=== PATIENT | female | born 1930 | race Caucasian/White ===

== ENCOUNTER 2016-07-24 16:34 | Emergency (ER) | payer MEDICARE, OTHER ==
[~2016-07-24] VITALS: Ht 152.4 cm; Wt 49.4 kg
[2016-07-24 16:34] VITALS: BP 177/109
[~2016-07-24 16:34] MED LIST changes: -MECL12.52 PO
[2016-07-24] MEDS ORDERED: IPRATRPIUM/ALBUTEROL 0.5/2.5MG 3 ML NEBU. NEB ONE (17:15)
--- NOTE | 2016-07-24 17:22 | EKG ---
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
--- NOTE | 2016-07-24 17:24 | ED.ADGEN ---
Past History Past Medical History: COPD, Diabetes, Hypertension Past Surgical History: Other Alcohol Use: Occasionally Drug Use: None Adult General Chief Complaint Chief Complaint dizziness HPI HPI Patient is a 86 year old female who presents with intermittent dizziness, most prominently when she stands up or stands from a laying position. It's been occurring for 2 weeks. It resolves after she stands still for a moment and then does not reoccur. Patient's noted that she had elevated blood pressure yesterday and today. She would see her primary care doctor who directed her to the ER. Patient states that 2 weeks ago her doctor decrease her Lopressor from 2 pills a day to one pill a day due to the dizziness. She also states a mild increase shortness of breath, she's had mild sinus congestion and cough. She does have COPD, uses breathing treatments intermittently. She has had these 1 yesterday and today. She denies any known fevers Review of Systems Review of Systems Constitutional: Denies fever or chills [] Eyes: Denies change in visual acuity, redness, or eye pain [] HENT: Per history of present illness Respiratory: Per history of present illness Cardiovascular: Denies chest pain GI: Denies abdominal pain, nausea, vomiting, bloody stools or diarrhea [] : Denies dysuria or hematuria [] Musculoskeletal: Denies back pain or joint pain [] Integument: Denies rash or skin lesions [] Neurologic: Denies headache, focal weakness or sensory changes [] Current Medications Current Medications Current Medications Medications (Trade) Dose Ordered Sig/Nanette Start Time Stop Time Status Last Admin Dose Admin Albuterol/ Ipratropium 3 ml 3 ml 1X ONCE 07/24/16 17:15 07/24/16 17:17 DC 07/24/16 17:17 3 ML Meclizine HCl (Antivert) 25 mg 1X ONCE 07/24/16 17:45 07/24/16 17:50 DC Sodium Chloride (Iv Sodium Chloride 0.9% 500ml) 500 ml @ 0 mls/hr 1X ONCE 07/24/16 17:45 07/24/16 17:50 DC Allergies Allergies Allergies Coded Allergies Type Severity Reaction Last Updated Verified aspirin Allergy Severe SWELLING 08/06/13 Yes Penicillins Allergy Mild RESH 08/06/13 No amoxicillin Allergy Unknown 08/06/13 No clarithromycin Allergy Unknown 08/06/13 No Physical Exam Physical Exam Constitutional: Well developed, well nourished, no acute distress, non-toxic appearance. Talks in complete in full sentences, shows no signs of respiratory distress HENT: Normocephalic, atraumatic, bilateral external ears normal, oropharynx moist, no oral exudates, nose normal. Fluid behind the ears with normal light reflex Eyes: PERRLA, EOMI, conjunctiva normal, no discharge. [] Neck: Normal range of motion, no tenderness, supple, no stridor. [] Cardiovascular:Heart rate regular rhythm, no murmur [] Lungs & Thorax: Bilateral breath sounds clear to auscultation, moderate air movement, no appreciable crackles or wheeze Abdomen: Bowel sounds normal, soft, no tenderness, no masses, no pulsatile masses. [] Skin: Warm, dry, no erythema, no rash. [] Back: No tenderness, no CVA tenderness. [] Extremities: No tenderness, no cyanosis, no clubbing, ROM intact, no edema. [] Neurologic: Alert and oriented X 3, normal motor function, normal sensory function, no focal deficits noted. Cranial nerves II through XII intact, 5 over 5 bilateral handgrip, no ataxia Psychologic: Affect normal, judgement normal, mood normal. [] Current Patient Data Vital Signs Vital Signs Date Time Temp Pulse Resp B/P Pulse Ox O2 Delivery O2 Flow Rate FiO2 07/24/16 17:17 95 Room Air 07/24/16 16:34 98.3 103 18 Lab Results Laboratory Tests Test 07/24/16 17:10 07/24/16 17:29 White Blood Count 4.8x10^3/uL (4.0-11.0) Red Blood Count 5.15x10^6/uL (3.50-5.40) Hemoglobin 14.9g/dL (12.0-15.5) Hematocrit 45.7% (36.0-47.0) Mean Corpuscular Volume 89fL (79-100) Mean Corpuscular Hemoglobin 29pg (25-35) Mean Corpuscular Hemoglobin Concent 33g/dL (31-37) Red Cell Distribution Width 14.8% (11.5-14.5) H Platelet Count 253x10^3/uL (140-400) Neutrophils (%) (Auto) 55% (31-73) Lymphocytes (%) (Auto) 30% (24-48) Monocytes (%) (Auto) 11% (0-9) H Eosinophils (%) (Auto) 3% (0-3) Basophils (%) (Auto) 1% (0-3) Neutrophils # (Auto) 2.6x10^3uL (1.8-7.7) Lymphocytes # (Auto) 1.4x10^3/uL (1.0-4.8) Monocytes # (Auto) 0.5x10^3/uL (0.0-1.1) Eosinophils # (Auto) 0.1x10^3/uL (0.0-0.7) Basophils # (Auto) 0.1x10^3/uL (0.0-0.2) POC Hemoglobin 15.6gm/dL POC Hematocrit 46% POC Sodium 139mmol/L (135-145) POC Potassium 4.2mmol/L (3.5-5.0) POC Chloride 99mmol/L (98-110) POC Total CO2 27mmol/L (23-32) Anion Gap 18mmol/L (6-14) H POC Blood Urea Nitrogen 5mg/dL (8-26) L POC Creatinine 0.6mg/dL (0.5-1.4) Glucose Level 130mg/dL (60-99) H POC Ionized Calcium (Rosalba) 1.20mmol/L (1.13-1.32) EKG EKG 95 bpm, sinus, leftward axis, normal intervals, no ST elevation or depression, nonischemic T waves, interpreted by me [] Radiology/Procedures Radiology/Procedures Two-view chest x-ray shows no acute cardiac process, pulmonary or bony process. Patient has a skin fold from her prior mastectomy but no pneumothorax appreciated, interpreted by me [] Course & Med Decision Making Course & Med Decision Making Pertinent Labs and Imaging studies reviewed. (See chart for details) Chest x-ray negative for pneumonia, pulmonary edema or cardiomegaly. Patient shows no signs of respiratory distress. She was given a DuoNeb breathing treatment here in the ED. She walks with normal gait, states that she feels much better. Checked an i-STAT chemistry did not show any renal failure or other significant abnormality. CBC within normal limits. EKG shows no ischemic changes. Orthostatics performed and patient's blood pressure did drop greater than 15 points but she did not become hypotensive. I explained this to the patient and her need to stand up slowly and to wait before she starts walking. Her blood pressure is elevated and I suggested that she increase her lisinopril to 2 tablets per day to the equivalent of 20 mg per day. She will continue to take her Lopressor-HCTZ at the same amount. She has a follow-up appointment with Dr. Alex on August 05, I encouraged her to keep this appointment and return sooner if she develops any new concerning symptoms. She is to continue to use her albuterol nebulizer as needed. Final Impression Final Impression Hypertension Dizziness COPD Upper respiratory infection [] Problems: Dragon Disclaimer Dragon Disclaimer This electronic medical record was generated, in whole or in part, using a voice recognition dictation system. MARGARETH ULLOA MD Jul 24, 2016 17:24
[2016-07-24 17:33] LABS: HEMOGLOBIN ISTAT 15.6 gm/dL; POTASSIUM ISTAT 4.2 mmol/L (3.5-5.0)
[2016-07-24 17:38] LABS: BASO # 0.1 x10^3/uL (0.0-0.2); BASO % 1 % (0-3); EOS # 0.1 x10^3/uL (0.0-0.7); EOS % 3 % (0-3); HEMATOCRIT 45.7 % (36.0-47.0); HEMOGLOBIN 14.9 g/dL (12.0-15.5); LYMPH # 1.4 x10^3/uL (1.0-4.8); LYMPH % 30 % (24-48); MEAN CORPUSCULAR HEMOGLOBIN 29 pg (25-35); MEAN CORPUSCULAR HGB CONC 33 g/dL (31-37); MEAN CORPUSCULAR VOLUME 89 fL (79-100); MONO # 0.5 x10^3/uL (0.0-1.1); MONO % 11 % (0-9); NEUT # 2.6 x10^3uL (1.8-7.7); NEUT % 55 % (31-73); PLATELET COUNT 253 x10^3/uL (140-400); RED BLOOD COUNT 5.15 x10^6/uL (3.50-5.40); RED CELL DISTRIBUTION WIDTH 14.8 % (11.5-14.5); WHITE BLOOD COUNT 4.8 x10^3/uL (4.0-11.0)
[2016-07-24] MEDS ORDERED: MECLIZINE 25 MG TABLET PO ONE (17:45)
[2016-07-24] MEDS ORDERED: IV NORMAL SALINE 500ML 500 ML IV ONE (17:45)
[2016-07-24] MEDS ORDERED: MECL12.52 PO (18:00)
--- NOTE | 2016-07-25 08:09 | RAD ---
Indication cough and congestion. PA and lateral views of the chest were obtained. Comparison is made to a single view examination 02/21/2013. There are background changes compatible with emphysema. The heart and pulmonary vessels are within normal limits. There is no consolidated pneumonia seen. There is marked compression of 2 midthoracic vertebral body segments similar to a study May 26, 2012. IMPRESSION: No acute finding apparent in the chest
== END 2016-07-24 18:10 | disposition home or self-care (01) ==
LOC: ER 16:34
DX: I10 Essential (primary) hypertension (principal); J06.9 Acute upper respiratory infection, unspecified; R42 Dizziness and giddiness; J44.9 Chronic obstructive pulmonary disease, unspecified; E11.9 Type 2 diabetes mellitus without complications; Z88.0 Allergy status to penicillin; Z88.1 Allergy status to other antibiotic agents; Z88.6 Allergy status to analgesic agent
CPT/HCPCS: 36415; 71020; 80047; 85027; 93005; 94640; 99285; J7620

== ENCOUNTER → 2016-07-24 | Outpatient (CLI) | payer MEDICARE, OTHER ==
[~2016-07-24] MED LIST: ALBU1.25 IH; EPIN5DRO OP; EZET1TAB19 PO; FLUT16SP2 NS; FLUT1DIS IH; IPRA12.9 IH; LEVO50TA PO; LISI-377 PO; LORA10TA55 PO; MECL12.52 PO; METO1TAB11 PO; MONT10TA6 PO
--- NOTE | 2016-07-24 10:32 | RAD ---
Bone densitometry scan, 07/24/2016: History: Ovarian failure, screening, breast cancer with chemotherapy The lumbar spine and right hip were examined utilizing DEXA technique. The bone mineral density in the lumbar spine as measured from the L1-L4 levels is 1.07 g/sq cm. This yields a T score of -0.9 which is in the normal range. The total T score at the right hip is -3.0 compatible with osteoporosis. IMPRESSION: 1. Osteoporosis of the right hip. 2. The lumbar spine bone mineral density is in the normal range. It may be elevated into the normal range by hypertrophic degenerative change. It is likely that the hip measurements more accurately reflect the patient's overall bone mineral density status.
== END | disposition home or self-care (01) ==
LOC: DXRAD 09:18
PROVIDERS: ATTEND Specialist
DX: Z13.820 Encounter for screening for osteoporosis (principal)
CPT/HCPCS: 77080

== ENCOUNTER 2017-04-07 11:44 | Inpatient (IN) | payer MEDICARE, OTHER ==
[~2017-04-07] VITALS: Ht 152.4 cm; Wt 46.4 kg
[~2017-04-07 11:44] MED LIST changes: -EZET1TAB19 PO; +EZET1TAB41 PO; +MECL12.52 PO
[2017-04-07 12:09] VITALS: BP 148/71
[2017-04-07] MEDS ORDERED: ONDANSETRON PF 4 MG/2 ML VIAL. IV PRN (13:00)
[2017-04-07 13:03] LABS: BASO # 0.1 x10^3/uL (0.0-0.2); BASO % 1 % (0-3); EOS # 0.1 x10^3/uL (0.0-0.7); EOS % 1 % (0-3); HEMATOCRIT 40.5 % (36.0-47.0); HEMOGLOBIN 14.1 g/dL (12.0-15.5); LYMPH # 0.8 x10^3/uL (1.0-4.8); LYMPH % 11 % (24-48); MEAN CORPUSCULAR HEMOGLOBIN 30 pg (25-35); MEAN CORPUSCULAR HGB CONC 35 g/dL (31-37); MEAN CORPUSCULAR VOLUME 85 fL (79-100); MONO # 1.4 x10^3/uL (0.0-1.1); MONO % 18 % (0-9); NEUT # 5.2 x10^3uL (1.8-7.7); NEUT % 69 % (31-73); PLATELET COUNT 308 x10^3/uL (140-400); RED BLOOD COUNT 4.75 x10^6/uL (3.50-5.40); RED CELL DISTRIBUTION WIDTH 15.1 % (11.5-14.5); WHITE BLOOD COUNT 7.5 x10^3/uL (4.0-11.0)
[2017-04-07 13:12] LABS: ALBUMIN 2.4 g/dL (3.4-5.0); ALBUMIN/GLOBULIN RATIO 0.7 (1.0-1.7); CALCIUM 8.5 mg/dL (8.5-10.1); CREATININE 0.9 mg/dL (0.6-1.0); GFR 59.7; MAGNESIUM 1.9 mg/dL (1.8-2.4); TOTAL BILIRUBIN 0.4 mg/dL (0.2-1.0); TOTAL PROTEIN 5.9 g/dL (6.4-8.2)
[2017-04-07 13:16] LABS: POTASSIUM 2.7 mmol/L (3.5-5.1)
[2017-04-07] MEDS: POTASSIUM CL 40MEQ IN 0.9%NACL 1,000 ML IV SCH (14:01)
[2017-04-07 14:23] LABS: % BANDS 4 % (0-9); % EOS 1 % (0-5); % LYMPHS 11 % (24-48); % MONOS 9 % (0-10); % SEGS 74 % (35-66)
[2017-04-07 14:24] LABS: PLT ESTIMATE ADEQUATE (ADEQUATE)
[2017-04-07 14:25] LABS: % ATYL 1 % (0-0)
[2017-04-07 15:47] VITALS: BP 158/76
--- NOTE | 2017-04-07 15:48 | HP ---
ADMIT DATE: 04/07/2017 HISTORY OF PRESENT ILLNESS: The patient is an 86-year-old female patient who was admitted directly from Dr. Tan's office as she apparently was complaining of upper respiratory tract symptoms, was seen in the office last Friday, was given doxycycline as well as Mucinex and apparently over this weekend, she started having episodes of confusion, hallucination, and delusion. She has still cats in her house, while there are none there and she thought her son was taken to jail. She continued to have also cough with phlegm, have an episode of fever and chest tightness and hoarseness of voice as well as runny nose, was admitted directly for further evaluation and treatment. PAST MEDICAL HISTORY: Significant for type 2 diabetes mellitus, hypertension, hyperlipidemia, hypothyroidism, COPD, glaucoma. PAST SURGICAL HISTORY: Significant for right lumpectomy and radical axillary lymphadenectomy. She also was treated with chemotherapy and radiation therapy in the year 1999. She has right-sided cataract extraction, tubal ligation, and she has also left olecranon bursitis with axillary lymphadenopathy treated with antibiotic. ALLERGIES: She has extensive list of allergies including IBUPROFEN, ASPIRIN, PENICILLIN, BIAXIN, AMOXICILLIN, dust mites, mold, grass, weed, ERYTHROMYCIN, AZITHROMYCIN. MEDICATIONS: She is currently on the following medications at home: Doxycycline 100 mg twice a day, Benefiber as needed, Mucinex 600 mg twice a day, Synthroid 50 mcg once a day, Singulair 10 mg once a day, loratadine 10 mg once a day. She is on Advair Diskus, Atrovent inhaler, albuterol inhaler, Flonase 1 spray to each nostril twice a day, multivitamin 1 tablet once a day, Zestril 5 mg once a day, Crestor 20 mg at bedtime, vitamin D3 1000 international units once a day, Lopressor 25 mg twice a day, ____ eye solution. FAMILY HISTORY: She has 3 brothers, all young in their early 50s because of myocardial infarction. Her father at the age of 54 because of myocardial infarction. Mother at the age of 98 because of myocardial infarction. SOCIAL HISTORY: She is , lives alone. She has 2 daughters and one son. She quit smoking about 2 weeks ago. She drinks a glass of wine or beer, the last time she drank was last . She does not use any drugs. 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 REVIEW OF SYSTEMS: The patient denied any blurring of vision. She has right-sided cataract extraction and she has also early glaucoma, but denied any macular degeneration. She has bilateral hearing aids. Did complain of stuffy nose. Denied any nosebleeds or postnasal drip. Denied any sore throat, sore tongue, toothache, hoarseness of voice or difficulty swallowing. Denied any nausea, vomiting, diarrhea or constipation. Denied any hematemesis, melena or hematochezia. Denied any dysuria or frequency. Did complain of difficulty urinating. Did complain of chest tightness, cough with phlegm. Denied any dizziness, lightheadedness, or vertigo. PHYSICAL EXAMINATION: GENERAL: When I examined her, she was pale, but no jaundice, cyanosis, or thyromegaly. No jugular venous distention. No limb edema. VITAL SIGNS: Her heart rate was 91, blood pressure was 148/71, temperature was 97, respiratory rate was 24, and oxygen saturation was 95% on room air. HEAD, EYES, EARS, NOSE AND THROAT: Showed normocephalic, atraumatic. NECK: Supple. HEART: Showed normal first and second heart sounds with no gallop, rub or murmur. CHEST: Showed central trachea, equally reduced expansion, reduced air entry, vesicular breath sounds. I could not really appreciate any rhonchi. ABDOMEN: Distended, soft and nontender. No guarding or rigidity. No organomegaly. Hernial orifice intact. Bowel sounds normal. NEUROLOGIC: She is awake, alert, responding appropriately. Cranial nerves intact. EXTREMITIES: She moves extremities without difficulty. She apparently ambulates without assistance or assistive devices. LABORATORY DATA: On arrival to the hospital, she had lab work done, which showed a white cell count of 7500, hemoglobin 14, hematocrit 40, MCV 85 and platelet count of 308,000 with a manual differential showed 69% neutrophils, 11% lymphocytes and 18% monocytes. Her serum sodium was 133, potassium 2.7, chloride 93, bicarbonate 31, anion gap of 9, BUN 10, creatinine 0.9, estimated GFR was 59 mL per minute. Her glucose 139, calcium was 8.5, magnesium was 1.9. Total bilirubin, AST, ALT, alkaline phosphatase were normal. Total protein was 5.9, albumin 2.4. SUMMARY: This is an 86-year-old female patient who was admitted with new onset of confusion, hallucination and delusions. She also had symptoms of upper respiratory tract infection. Initial evaluation showed hyponatremia and hypokalemia. She is not currently on any medications that should cause this hypokalemia. PLAN: My plan is to arrange for her to have chest x-ray, CT scan of the head and paranasal sinuses. Start her on IV fluid, continue with doxycycline and Mucinex with all other medication. We will repeat all her lab works tomorrow. LILLIAN ROCA MD DR: LUISANA/robson JOB#: [id number] / [id number]
--- NOTE | 2017-04-07 15:53 | RAD ---
CT of the head without contrast, 04/07/2017: History: Hallucinations, sinus congestion There is mild cerebral atrophy. The ventricles are within normal limits in size. There is no shift of the midline structures. There is no evidence of acute intracranial hemorrhage or mass effect. IMPRESSION: 1. Cerebral atrophy. 2. No acute intracranial abnormality is detected. CT of the paranasal sinuses without contrast, 04/07/2017: Noncontrast scans were obtained with multiplanar reconstructions produced. There is moderate mucosal thickening in both ethmoid sinuses and to a lesser degree in the frontal sinuses. There is mild mucosal thickening in both maxillary sinuses. An air-fluid level is present in the left maxillary sinus compatible with acute sinusitis. The sphenoid sinuses are clear. There is deviation of the nasal septum to the left of midline. The orbital contents are unremarkable. IMPRESSION: Moderate bilateral paranasal sinusitis with an air-fluid level present in the left maxillary sinus. PQRS Compliance Statement: One or more of the following individualized dose reduction techniques were utilized for this examination: 1. Automated exposure control 2. Adjustment of the mA and/or kV according to patient size 3. Use of iterative reconstruction technique
[2017-04-07] MEDS ORDERED: GUAI600T47 PO (15:54)
[2017-04-07] MEDS ORDERED: MULT1TAB52 PO (15:54)
[2017-04-07] MEDS ORDERED: OLOP2.5D EACHEYE (15:54)
[2017-04-07] MEDS ORDERED: CHOL10003 PO (15:54)
[2017-04-07] MEDS ORDERED: LUTE1CAP3 PO (15:54)
[2017-04-07] MEDS ORDERED: DOXY100T PO (15:54)
[2017-04-07] MEDS ORDERED: CRESTOR20 MG PO (15:54)
[2017-04-07] MEDS ORDERED: WHEA1POW8 PO (15:54)
--- NOTE | 2017-04-07 15:57 | RAD ---
Chest, 2 views, 04/07/2017: History: COPD with cough and shortness of breath Comparison is made to a study from 07/24/2016. There is flattening of the hemidiaphragms compatible with hyperexpansion due to COPD. The heart size is normal. There are granulomatous calcifications in the right chest. Streaky opacities are present in the right middle lobe and lingula. These have worsened since 07/24/2016. No pleural fluid is evident. Two severe mid thoracic vertebral compression fractures are unchanged. IMPRESSION: 1. Emphysema with parenchymal scarring. 2. Mild streaky atelectasis and/or pneumonitis in the right middle lobe and lingula.
[2017-04-07] MEDS ORDERED: ALBUTEROL SULFATE 2.5 MG/3 ML NEBU. NEB PRN (16:15)
[2017-04-07] MEDS ORDERED: MECLIZINE 12.5 MG TABLET. PO PRN (16:15)
[2017-04-07] MEDS: ALBUTEROL SULFATE 2.5 MG/3 ML NEBU. NEB SCH ×2 (17:35→21:06)
[2017-04-07 17:38] LABS: CALCIUM 8.6 mg/dL (8.5-10.1); CREATININE 0.8 mg/dL (0.6-1.0); GFR 68.3
[2017-04-07 17:41] LABS: POTASSIUM 2.7 mmol/L (3.5-5.1)
[2017-04-07] MEDS ORDERED: METO25TA4 PO (17:55)
[2017-04-07] MEDS: POTASSIUM CHLORIDE 20 MEQ TABLET.ER. PO SCH ×3 (18:00→20:39)
[2017-04-07 19:06] VITALS: BP 127/80
[2017-04-07] MEDS: ATORVASTATIN CALCIUM 20 MG TABLET PO SCH (20:40)
[2017-04-07] MEDS: DOXYCYCLINE HYCLATE 100 MG TABLET PO SCH (20:40)
[2017-04-07] MEDS: FLUTICASONE 50MCG/NASAL SPRAY 16GM BOTTLE. NS SCH (20:43)
[2017-04-07] MEDS ORDERED: MONTELUKAST 10 MG TABLET. PO SCH (21:00)
[2017-04-07] MEDS: BUDESONIDE 0.5 MG/2 ML NEBU NEB SCH (21:06)
[2017-04-07] MEDS: LISINOPRIL 10 MG TABLET PO SCH (21:24)
[2017-04-07] MEDS: METOPROLOL TART IMMED RELEASE 25 MG TABLET PO SCH (21:25)
[2017-04-07 22:01] LABS: BACTERIA,URINE 0 /HPF (0-FEW); BILIRUBIN,URINE NEG (NEG); CLARITY,URINE CLEAR; COLOR,URINE YELLOW; GLUCOSE,URINE NEG (NEG); NITRITE,URINE NEG (NEG); SQUAMOUS EPITHELIAL CELL,UR FEW /LPF; UROBILINOGEN,URINE 0.2 mg/dL (0.2 mg/dL)
[2017-04-07 23:12] VITALS: BP 154/75
[2017-04-08] MEDS: POTASSIUM CL 40MEQ IN 0.9%NACL 1,000 ML IV SCH (03:41)
[2017-04-08] MEDS: ALBUTEROL SULFATE 2.5 MG/3 ML NEBU. NEB SCH ×4 (05:28→21:28)
[2017-04-08 05:47] VITALS: BP 149/83
[2017-04-08 06:10] LABS: HEMATOCRIT 41.4 % (36.0-47.0); HEMOGLOBIN 14.1 g/dL (12.0-15.5); RED BLOOD COUNT 4.77 x10^6/uL (3.50-5.40); RED CELL DISTRIBUTION WIDTH 15.4 % (11.5-14.5); WHITE BLOOD COUNT 4.7 x10^3/uL (4.0-11.0)
[2017-04-08 06:18] LABS: ALBUMIN 2.2 g/dL (3.4-5.0); ALBUMIN/GLOBULIN RATIO 0.5 (1.0-1.7); CALCIUM 8.8 mg/dL (8.5-10.1); CREATININE 0.7 mg/dL (0.6-1.0); GFR 79.7; POTASSIUM 4.2 mmol/L (3.5-5.1); TOTAL BILIRUBIN 0.3 mg/dL (0.2-1.0); TOTAL PROTEIN 6.5 g/dL (6.4-8.2)
[2017-04-08] MEDS: CETIRIZINE HCL 10 MG TABLET PO SCH (08:30)
[2017-04-08] MEDS: MONTELUKAST 10 MG TABLET. PO SCH (08:30)
[2017-04-08] MEDS: DOXYCYCLINE HYCLATE 100 MG TABLET PO SCH ×2 (08:30→20:04)
[2017-04-08] MEDS: FLUTICASONE 50MCG/NASAL SPRAY 16GM BOTTLE. NS SCH ×2 (08:30→20:04)
[2017-04-08] MEDS: CHOLECALCIFEROL (VITAMIN D3) 1,000 UNIT TABLET PO SCH (08:30)
[2017-04-08] MEDS: MULTIVITAMIN with MINERAL TABLET. PO SCH (08:30)
[2017-04-08] MEDS: KETOTIFEN FUMARATE 0.025% OPHT SOLUTION BOTTLE. OU SCH (08:31)
[2017-04-08] MEDS ORDERED: LISINOPRIL 10 MG TABLET PO SCH (09:00)
[2017-04-08] MEDS ORDERED: LEVOTHYROXINE 50 MCG TABLET PO SCH (09:00)
[2017-04-08] MEDS ORDERED: METOPROLOL TART IMMED RELEASE 25 MG TABLET PO SCH (09:00)
[2017-04-08] MEDS: BUDESONIDE 0.5 MG/2 ML NEBU NEB SCH ×2 (10:49→21:28)
[2017-04-08 11:44] VITALS: BP 172/85
[2017-04-08 14:25] VITALS: BP 151/79
[2017-04-08 19:17] VITALS: BP 144/73
[2017-04-08] MEDS: ATORVASTATIN CALCIUM 20 MG TABLET PO SCH (20:04)
[2017-04-08] MEDS: LISINOPRIL 10 MG TABLET PO SCH (20:06)
[2017-04-08] MEDS: METOPROLOL TART IMMED RELEASE 25 MG TABLET PO SCH (20:06)
[2017-04-08 22:57] VITALS: BP 121/68
[2017-04-09 05:28] VITALS: BP 160/82
[2017-04-09] MEDS: ALBUTEROL SULFATE 2.5 MG/3 ML NEBU. NEB SCH ×2 (05:43→11:13)
[2017-04-09] MEDS ORDERED: LEVOTHYROXINE 50 MCG TABLET PO SCH (06:00)
[2017-04-09 06:30] LABS: BASO # 0.1 x10^3/uL (0.0-0.2); BASO % 1 % (0-3); EOS # 0.2 x10^3/uL (0.0-0.7); EOS % 4 % (0-3); HEMOGLOBIN 14.4 g/dL (12.0-15.5); LYMPH # 1.1 x10^3/uL (1.0-4.8); LYMPH % 25 % (24-48); MEAN CORPUSCULAR HEMOGLOBIN 30 pg (25-35); MEAN CORPUSCULAR HGB CONC 34 g/dL (31-37); MEAN CORPUSCULAR VOLUME 86 fL (79-100); MONO # 0.5 x10^3/uL (0.0-1.1); MONO % 12 % (0-9); NEUT # 2.6 x10^3uL (1.8-7.7); NEUT % 58 % (31-73); PLATELET COUNT 333 x10^3/uL (140-400); RED BLOOD COUNT 4.86 x10^6/uL (3.50-5.40); RED CELL DISTRIBUTION WIDTH 15.4 % (11.5-14.5); WHITE BLOOD COUNT 4.6 x10^3/uL (4.0-11.0)
[2017-04-09 06:41] LABS: ALBUMIN 2.2 g/dL (3.4-5.0); ALBUMIN/GLOBULIN RATIO 0.5 (1.0-1.7); CALCIUM 8.9 mg/dL (8.5-10.1); CREATININE 0.7 mg/dL (0.6-1.0); GFR 79.7; POTASSIUM 3.9 mmol/L (3.5-5.1); TOTAL BILIRUBIN 0.3 mg/dL (0.2-1.0); TOTAL PROTEIN 6.4 g/dL (6.4-8.2)
[2017-04-09] MEDS: BUDESONIDE 0.5 MG/2 ML NEBU NEB SCH (08:00)
[2017-04-09] MEDS: CETIRIZINE HCL 10 MG TABLET PO SCH (08:01)
[2017-04-09] MEDS: DOXYCYCLINE HYCLATE 100 MG TABLET PO SCH (08:02)
[2017-04-09] MEDS: MONTELUKAST 10 MG TABLET. PO SCH (08:02)
[2017-04-09] MEDS: CHOLECALCIFEROL (VITAMIN D3) 1,000 UNIT TABLET PO SCH (08:02)
[2017-04-09] MEDS: MULTIVITAMIN with MINERAL TABLET. PO SCH (08:02)
[2017-04-09] MEDS: KETOTIFEN FUMARATE 0.025% OPHT SOLUTION BOTTLE. OU SCH (08:03)
[2017-04-09] MEDS: FLUTICASONE 50MCG/NASAL SPRAY 16GM BOTTLE. NS SCH (08:03)
--- NOTE | 2017-04-09 08:11 | PN ---
DATE: 04/08/2017 SUBJECTIVE: The patient is resting slightly propped up in bed in no apparent distress. She is more awake, alert, responding appropriately. She has had no further episodes of hallucinations or delusions. Her lab work showed that her sodium and potassium have normalized. Her CT scan of the head and facial bones showed that she has moderate mucosal thickening of both ethmoid sinuses and to a lesser degree frontal sinuses. She has also mild thickening of both maxillary sinus and the air fluid level is present in the left maxillary sinus compatible with acute sinusitis. The CT scan of the head showed cerebral atrophy. No acute intracranial abnormalities detected and her chest x-ray showed that she has mild streaky atelectasis and/or pneumonitis in the right middle lobe and lingula. She is now on Levaquin as well as doxycycline. PHYSICAL EXAMINATION: GENERAL: When I examined her this afternoon, she looked well and was clearly in no apparent respiratory distress, pale but no jaundice, cyanosis, or thyromegaly. No jugular venous distention. No limb edema. VITAL SIGNS: Her heart rate was 84, blood pressure was 154/75, temperature was 97.4, respiratory rate 20, and oxygen saturation was 95% on 2 liters of oxygen by nasal cannula. HEAD, EYES, EARS, NOSE AND THROAT: Showed normocephalic, atraumatic. NECK: Supple. HEART: Showed normal first and second heart sounds. No gallop, rub, or murmur. CHEST: Clear to auscultation. No crepitation or rhonchi. ABDOMEN: Distended, soft, nontender. No guarding or rigidity. No organomegaly. All hernial orifices intact. Bowel sounds normal. NEUROLOGIC: She is awake, alert, responding appropriately. Cranial nerves intact. She moves extremities without difficulty. She ambulates without assistance or assistive devices. Her intake was 2600, output was 2200. LABORATORY DATA: Her lab work this morning showed a white cell count of 4700, hemoglobin 14, hematocrit 41, MCV 87, her platelet count of 303,000. Her sedimentation rate was 72 mm per hour. Chemistry this morning showed serum sodium was 136, potassium 4.2, chloride 100, bicarbonate 30, anion gap of 6, BUN 6, creatinine 0.7, estimated GFR was 80 mL per minute. Her glucose 129, calcium was 8.8. Total bilirubin, AST, ALT, alkaline phosphatase were normal. Total protein was 6.5, albumin 2.2. C-reactive protein was 54 mg/dL. Her blood cultures are negative so far. ASSESSMENT: 1. Acute left maxillary sinusitis. 2. Community-acquired pneumonia with infiltrate involving right middle lobe and lingula. 3. Hypokalemia, resolved. 4. Hyponatremia, resolved. 5. The patient was admitted with new onset of confusion, hallucination, and delusion. PLAN: My plan is to continue with levofloxacin as well as doxycycline. Her lab works have normalized. I will discontinue the IV fluid. We will consult Dr. Ruiz to evaluate for new onset hallucination. Repeat her lab works and if she remains stable, she can be discharged home to continue treatment as an outpatient. LILLIAN ROCA MD DR: LUISANA/robson JOB#: [id number] / [id number]
[2017-04-09 10:19] VITALS: BP 133/78
[2017-04-09] MEDS ORDERED: LEVO500T59 PO (13:35)
--- NOTE | 2017-04-09 16:26 | PDOC ---
Exam Note: Allen Note: Please also refer to the separate dictated note~for this date of service dictated separately.~Patient seen individually. Discussed the patient with Nursing staff reviewed the chart.~Reviewed interim history and current functioning. Reviewed vital signs,~Labs/ Radiology~and current medications noted below. Continue current treatment with the changes noted in the dictated addendum note Assessment: Vital Signs: Vital Signs Date Time Temp Pulse Resp B/P (MAP) Pulse Ox O2 Delivery O2 Flow Rate FiO2 04/09/17 11:14 92 Room Air 04/09/17 10:19 98.5 87 20 133/78 (96) 04/08/17 14:25 2.0 I&O Intake and Output 04/09/17 07:00 Intake Total 1820 ml Balance 1820 ml Intake Oral 1820 ml # Voids 10 Labs: Laboratory Tests Test 04/09/17 06:07 White Blood Count 4.6 x10^3/uL (4.0-11.0) Red Blood Count 4.86 x10^6/uL (3.50-5.40) Hemoglobin 14.4 g/dL (12.0-15.5) Hematocrit 42.0 % (36.0-47.0) Mean Corpuscular Volume 86 fL (79-100) Mean Corpuscular Hemoglobin 30 pg (25-35) Mean Corpuscular Hemoglobin Concent 34 g/dL (31-37) Red Cell Distribution Width 15.4 % (11.5-14.5) H Platelet Count 333 x10^3/uL (140-400) Neutrophils (%) (Auto) 58 % (31-73) Lymphocytes (%) (Auto) 25 % (24-48) Monocytes (%) (Auto) 12 % (0-9) H Eosinophils (%) (Auto) 4 % (0-3) H Basophils (%) (Auto) 1 % (0-3) Neutrophils # (Auto) 2.6 x10^3uL (1.8-7.7) Lymphocytes # (Auto) 1.1 x10^3/uL (1.0-4.8) Monocytes # (Auto) 0.5 x10^3/uL (0.0-1.1) Eosinophils # (Auto) 0.2 x10^3/uL (0.0-0.7) Basophils # (Auto) 0.1 x10^3/uL (0.0-0.2) Sodium Level 136 mmol/L (136-145) Potassium Level 3.9 mmol/L (3.5-5.1) Chloride Level 100 mmol/L (98-107) Carbon Dioxide Level 29 mmol/L (21-32) Anion Gap 7 (6-14) Blood Urea Nitrogen 2 mg/dL (7-20) L Creatinine 0.7 mg/dL (0.6-1.0) Estimated GFR (Cockcroft-Gault) 79.7 BUN/Creatinine Ratio 3 (6-20) L Glucose Level 133 mg/dL (70-99) H Calcium Level 8.9 mg/dL (8.5-10.1) Total Bilirubin 0.3 mg/dL (0.2-1.0) Aspartate Amino Transferase (AST) 24 U/L (15-37) Alanine Aminotransferase (ALT) 36 U/L (14-59) Alkaline Phosphatase 94 U/L (46-116) Total Protein 6.4 g/dL (6.4-8.2) Albumin 2.2 g/dL (3.4-5.0) L Albumin/Globulin Ratio 0.5 (1.0-1.7) L Current Medications: Meds: Current Medications Ondansetron HCl (Zofran) 4 mg PRN Q8HRS PRN IV NAUSEA/VOMITING; Start 04/07/17 at 13:00; Stop 04/09/17 at 15:21; Status DC Potassium Chloride/Sodium Chloride 1,000 ml @ 75 mls/hr [id number] IV Last administered on 04/08/17 03:41; Start 04/07/17 at 13:30; Stop 04/08/17 at 14:52 ; Status DC Vitamin D (Vitamin D3) 1,000 unit DAILY PO Last administered on 04/09/17 08:02 ; Start 04/08/17 at 09:00; Stop 04/09/17 at 15:21; Status DC Doxycycline Hyclate (Vibra-Tab) 100 mg BID PO Last administered on 04/09/17 08 :02; Start 04/07/17 at 21:00; Stop 04/09/17 at 15:21; Status DC Fluticasone Propionate (Flonase) 1 spray BID NS Last administered on 04/09/17 08:03; Start 04/07/17 at 21:00; Stop 04/09/17 at 15:21; Status DC Guaifenesin (Mucinex Er) 600 mg BID PO Last administered on 04/09/17 08:01; Start 04/07/17 at 21:00; Stop 04/09/17 at 15:21; Status DC Levothyroxine Sodium (Synthroid) 50 mcg DAILY PO Last administered on 08:30; Start 04/08/17 at 09:00; Stop 04/08/17 at 20:21; Status DC Lisinopril (Prinivil) 10 mg DAILY PO ; Start 04/08/17 at 09:00; Stop 04/08/17 at 09:00; Status DC Meclizine HCl (Antivert) 12.5 mg PRN TID PRN PO dizziness; Start 04/07/17 at 16 :15; Stop 04/09/17 at 15:21; Status DC Montelukast Sodium (Singulair) 10 mg QHS PO ; Start 04/07/17 at 21:00; Stop 04/07/17 at 21:00; Status DC Albuterol Sulfate (Ventolin) 2.5 mg PRN Q6HRS PRN NEB SHORTNESS OF BREATH; Start 04/07/17 at 16:15; Stop 04/07/17 at 16:31; Status DC Budesonide (Pulmicort) 0.5 mg RTBID NEB Last administered on 04/09/17 08:00; Start 04/07/17 at 20:00; Stop 04/09/17 at 15:21; Status DC Cetirizine HCl (ZyrTEC) 10 mg DAILY PO Last administered on 04/09/17 08:01; Start 04/08/17 at 09:00; Stop 04/09/17 at 15:21; Status DC Metoprolol Tartrate (Lopressor) 25 mg DAILY PO ; Start 04/08/17 at 09:00; Stop 04/08/17 at 09:00; Status DC Multivitamins/ Calcium (Thera-M Plus) 1 tab DAILY PO Last administered on 08:02; Start 04/08/17 at 09:00; Stop 04/09/17 at 15:21; Status DC Atorvastatin Calcium (Lipitor) 80 mg QHS PO Last administered on 04/08/17 20: 04; Start 04/07/17 at 21:00; Stop 04/09/17 at 15:21; Status DC Ketotifen Fumarate (Zaditor) 1 drop DAILY OU Last administered on 04/09/17 08: 03; Start 04/08/17 at 09:00; Stop 04/09/17 at 15:21; Status DC Albuterol Sulfate (Ventolin) 2.5 mg Q6HRS NEB Last administered on 04/09/17 11 :13; Start 04/07/17 at 18:00; Stop 04/09/17 at 15:21; Status DC Levofloxacin/ Dextrose 100 ml @ 100 mls/hr Q24H IV Last administered on 18:06; Start 04/07/17 at 17:30; Stop 04/08/17 at 11:31; Status DC Potassium Chloride (Klor-Con) 40 meq Q2HR PO Last administered on 04/07/17 20: 39; Start 04/07/17 at 17:45; Stop 04/07/17 at 18:01; Status DC Lisinopril (Prinivil) 10 mg QHS PO Last administered on 04/08/17 20:06; Start 04/07/17 at 21:00; Stop 04/09/17 at 15:21; Status DC Metoprolol Tartrate (Lopressor) 25 mg QHS PO Last administered on 04/08/17 20: 06; Start 04/07/17 at 21:00; Stop 04/09/17 at 15:21; Status DC Montelukast Sodium (Singulair) 10 mg DAILY PO Last administered on 04/09/17 08 :02; Start 04/08/17 at 09:00; Stop 04/09/17 at 15:21; Status DC Levofloxacin/ Dextrose 50 ml @ 50 mls/hr Q24H IV Last administered on 17:39; Start 04/08/17 at 17:30; Stop 04/09/17 at 15:21; Status DC Levothyroxine Sodium (Synthroid) 50 mcg DAILY06 PO Last administered on 05:17; Start 04/09/17 at 06:00; Stop 04/09/17 at 15:21; Status DC Active Scripts Active Levaquin (Levofloxacin) 500 Mg Tablet 1 Tab PO DAILY Meclizine Hcl 12.5 Mg Tablet 1 Tab PO TID PRN Reported Metoprolol Tartrate 25 Mg Tablet 1 Tab PO DAILY LAST DOSE GIVEN: DATE:SUNDAY 04/08 TIME:9PM NEXT DOSE DUE: DATE:MONDAY 04/09 TIME:9PM Lutein 15 Mg Softgel (Lutein Extract/Zeaxanthin Ext) 1 Each Capsule 1 Each PO LAST DOSE GIVEN: DATE:MONDAY 04/09 TIME:9AM NEXT DOSE DUE: DATE:TUESDAY 04/10 TIME:9AM Pataday (Olopatadine Hcl) 2.5 Ml Drops 1 Drop EACHEYE DAILY LAST DOSE GIVEN: DATE:MONDAY 04/09 TIME:9AM NEXT DOSE DUE: DATE:TUESDAY 04/10 TIME:9AM Crestor (Rosuvastatin Calcium) 20 Mg Tablet 1 Tab PO DAILY LAST DOSE GIVEN: DATE:MONDAY 04/09 TIME:9AM NEXT DOSE DUE: DATE:TUESDAY 04/10 TIME:9AM Vitamin D3 (Cholecalciferol (Vitamin D3)) 1,000 Unit Tablet 1 Tab PO DAILY LAST DOSE GIVEN: DATE:MONDAY 04/09 TIME:9AM NEXT DOSE DUE: DATE:TUESDAY 04/10 TIME:9AM Multivitamins (Multivitamin) 1 Each Tablet 1 Tab PO DAILY LAST DOSE GIVEN: DATE:MONDAY 04/09 TIME:9AM NEXT DOSE DUE: DATE:TUESDAY 04/10 TIME:9AM Mucinex (Guaifenesin) 600 Mg Tablet.er 1 Tab PO BID LAST DOSE GIVEN: DATE:MONDAY 04/09 TIME:9AM NEXT DOSE DUE: DATE:MONDAY 04/09 TIME:9PM Benefiber (Wheat Dextrin) 1 Each Powd.pack 1 Each PO LAST DOSE GIVEN: NOT GIVEN THIS ADMISSION NEXT DOSE DUE: DATE: 04/10 TIME: AM Doxycycline Hyclate 100 Mg Tablet 1 Tab PO BID LAST DOSE GIVEN: DATE:MONDAY 04/09 TIME:9AM NEXT DOSE DUE: DATE:MONDAY 04/09 TIME:9PM Zestril (Lisinopril) 10 Mg Tablet 10 Mg PO LAST DOSE GIVEN: DATE:SUNDAY 04/08 TIME:9PM NEXT DOSE DUE: DATE:MONDAY 04/09 TIME:9PM Flonase (Fluticasone Propionate) 16 Gm [place].susp 16 Gm NS LAST DOSE GIVEN: DATE:MONDAY 04/09 TIME:9AM NEXT DOSE DUE: DATE:MONDAY 04/09 TIME:9PM Advair 100-50 Diskus (Fluticasone/Salmeterol) 1 Each Disk.w.dev 1 Each IH LAST DOSE GIVEN: DATE:MONDAY 04/09 TIME:9AM NEXT DOSE DUE: DATE:MONDAY 04/09 TIME:9PM Atrovent Hfa (Ipratropium [place]) 12.9 Gm Hfa.aer.ad 12.9 Gm IH LAST DOSE GIVEN: NOT GIVEN THIS ADMISSION NEXT DOSE DUE: DATE: 04/10 TIME: AM Albuterol Sulfate Neb Soln (Albuterol Sulfate) 1.25 Mg/3 Ml Vial.neb 1.25 Mg IH Q6HRS LAST DOSE GIVEN: DATE: MONDAY 04/09 TIME: 11:15 AM NEXT DOSE DUE: DATE: MONDAY 04/09 TIME: 6:00 PM Loratadine 10 Mg Tab.rapdis 10 Mg PO LAST DOSE GIVEN: DATE:MONDAY 04/09 TIME:9AM NEXT DOSE DUE: DATE:TUESDAY 04/10 TIME:9AM Singulair Tablet (Montelukast Sodium) 10 Mg Tablet 10 Mg PO LAST DOSE GIVEN: DATE:MONDAY 04/09 TIME:9AM NEXT DOSE DUE: DATE:MONDAY 04/09 TIME:9AM Synthroid (Levothyroxine Sodium) 50 Mcg Tablet 50 Mcg PO LAST DOSE GIVEN: DATE:MONDAY 04/09 TIME:BEFORE BREAKFAST NEXT DOSE DUE: DATE:TUESDAY 04/10 TIME:BEFORE BREAKFAST I have reviewed the current psychotropics carefully including drug interactions. Risk benefit ratio favors no change other than as noted in my dictated progress note. Diagnosis: Problems: (1) Anxiety disorder (2) Mild cognitive disorder MOY ESPINAL MD Apr 09, 2017 16:26
--- NOTE | 2017-04-10 07:06 | CONS ---
DATE OF CONSULTATION: 04/08/2017 This is a late entry for 04/08/2017 and covers elements not covered in my initial note of 04/08/2017. The patient was seen individually evening of 04/08/2017. Discussed with nursing staff, reviewed the chart. REASON FOR CONSULT AND IDENTIFYING DATA: The patient is an 86-year-old female who is seen in bed 125, [facility], for a psychiatric consult, requested by Dr. Meeks on account of delusions, hallucinations that patient developed over the weekend in the evening. She was admitted inpatient with electrolyte imbalance, sinusitis and pneumonitis and gradually the psychosis has resolved, but this consult is requested to clarify her diagnosis and whether further workup is needed. CHIEF COMPLAINT: "Yes, I was having hallucinations, but now I am better. I get a little forgetful at times." HISTORY OF PRESENT ILLNESS: The patient was admitted directly from Dr. Tan's office as she apparently was complaining of upper respiratory tract symptoms for which she received doxycycline and Mucinex. Over the weekend, she was having increased confusion, hallucinations and delusions. She thought there were more cats in her house than she actually had and thought her son was taken to long-term. She was having some sleep disturbance as well. Gradually, as she has been medically stabilized, the psychosis had resolved. She still has some very minimal short term memory deficits consistent with mild cognitive impairment, but no psychotic symptoms. She denies being depressed. No symptoms of bipolar disorder. PAST PSYCHIATRIC HISTORY: Noncontributory. PAST MEDICAL HISTORY: Diabetes mellitus, hypertension, hyperlipidemia, COPD, glaucoma, hypothyroidism, upper respiratory tract infection, hyponatremia, hypokalemia. ALLERGIES: IBUPROFEN, ASPIRIN, PENICILLIN, BIAXIN, AMOXICILLIN, DUST, MITES, MOLD, GRASS WEED, ERYTHROMYCIN, AZITHROMYCIN. CURRENT PSYCHOTROPICS: Noncontributory. FAMILY HISTORY: Negative for psychiatric illness. SOCIAL HISTORY: The patient is . She lives alone in her home. She has 2 daughters, 1 son. She quit smoking about 2 weeks ago. Drinks a glass of wine or beer. Last time was about 5 days back. Denies any drug usage. 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 MENTAL STATUS EXAM: The patient was seen individually evening of 04/08/2017. She is well oriented. Speech is coherent, abstraction fair, computation somewhat impaired, language function intact, attention span is fair. Mood appears stable. Affect is mood congruent, slightly anxious, but understandable given the above circumstances. No clear psychotic symptoms, suicidal or homicidal ideation. LABORATORY DATA: Reviewed. CT head shows cortical atrophy, otherwise unremarkable. REVIEW OF SYSTEMS: No CV, , pulmonary, eye, ENT system symptoms on review. IMPRESSION: Mild cognitive impairment and delirium due to general medical condition, resolved. Rest as above. PLAN: From a psychiatric standpoint, I would not recommend anything different at this stage. She seems to have resolved her psychotic symptoms, which were present at admission. This note covers elements not covered in my initial note of 04/08/2017. Dr. Meeks, thank you for the opportunity to participate in your patient's care. We will follow with you. MAN Feliz ESPINAL MD DR: KHADAR/robson JOB#: [id number] / [id number]
== END 2017-04-09 15:20 | disposition home health service (06) | DRG 190 ==
LOC: ICU 11:44 → 1 SOUTH 19:41
PROVIDERS: ADMIT Internal Medicine; ATTEND Internal Medicine
DX: J44.0 Chronic obstructive pulmonary disease with (acute) lower respiratory infection (principal); J18.9 Pneumonia, unspecified organism; G92 Toxic encephalopathy; F05 Delirium due to known physiological condition; E87.1 Hypo-osmolality and hyponatremia; E11.9 Type 2 diabetes mellitus without complications; J01.00 Acute maxillary sinusitis, unspecified; F22 Delusional disorders; E03.9 Hypothyroidism, unspecified; E78.5 Hyperlipidemia, unspecified; F29 Unspecified psychosis not due to a substance or known physiological condition; E87.6 Hypokalemia; F41.9 Anxiety disorder, unspecified; G31.84 Mild cognitive impairment of uncertain or unknown etiology; H40.9 Unspecified glaucoma; I10 Essential (primary) hypertension; Z60.2 Problems related to living alone; Z82.49 Family history of ischemic heart disease and other diseases of the circulatory system; Z88.6 Allergy status to analgesic agent; Z88.1 Allergy status to other antibiotic agents; Z88.0 Allergy status to penicillin; Z88.8 Allergy status to other drugs, medicaments and biological substances; Z87.891 Personal history of nicotine dependence; Z92.21 Personal history of antineoplastic chemotherapy; Z98.51 Tubal ligation status; Z98.41 Cataract extraction status, right eye; Z92.3 Personal history of irradiation
CPT/HCPCS: 36415; 70450; 70486; 71020; 80048; 80053; 81001; 82533; 83735; 85007; 85025; 85027; 85651; 86140; 87040; 87086; 87641; 94640; J1956; J7613; J7626; 99285-25

== ENCOUNTER 2017-04-15 17:04 | Emergency (ER) | payer MEDICARE, OTHER ==
[~2017-04-15] VITALS: Ht 149.9 cm; Wt 45.8 kg
[~2017-04-15 17:04] MED LIST changes: +CHOL10003 PO; +CRESTOR20 MG PO; +DOXY100T PO; +GUAI600T47 PO; +LEVO500T59 PO; +LUTE1CAP3 PO; +METO25TA4 PO; +MULT1TAB52 PO; +OLOP2.5D EACHEYE; +WHEA1POW8 PO
--- NOTE | 2017-04-15 18:13 | ED.ADGEN ---
Past History Past Medical History: High Cholesterol, Hypertension, Hypothyroid, Sinusitis, Other Past Surgical History: No Surgical History Alcohol Use: None Drug Use: None Adult General Chief Complaint Chief Complaint " I had blurred vision for maybe two minutes.. in left side.. but it gone.. " I know I got sinusitis.. and recently treated for pneumonia..." HPI HPI Patient is a 86 year old female who presents with above hx of left visual field wavy lines last approximately 2 minutes. Patient currently has no symptoms. No history of trauma. No history of travel. Patient recently admitted for pneumonia and sinusitis. Patient currently still on antibiotics. She follows with Dr. Alex advised to come and get checked out tonight. Review of Systems Review of Systems Constitutional: Denies fever or chills [] Eyes: Denies change in visual acuity, redness, or eye pain []temporary visual field changes HENT: Denies nasal congestion or sore throat [] Respiratory: Denies cough or shortness of breath [] Cardiovascular: No additional information not addressed in HPI [] GI: Denies abdominal pain, nausea, vomiting, bloody stools or diarrhea [] : Denies dysuria or hematuria [] Musculoskeletal: Denies back pain or joint pain [] Integument: Denies rash or skin lesions [] Neurologic: Denies headache, focal weakness or sensory changes [] Endocrine: Denies polyuria or polydipsia [] All other systems were reviewed and found to be within normal limits, except as documented in this note. Family History Family History Contributory Current Medications Current Medications \\See nursing for home meds Allergies Allergies Allergies Coded Allergies Type Severity Reaction Last Updated Verified aspirin Allergy Severe SWELLING 08/06/13 Yes amoxicillin Allergy Intermediate 04/08/17 No clarithromycin Allergy Intermediate 04/08/17 No erythromycin base Allergy Intermediate 04/08/17 Yes ibuprofen Allergy Intermediate 04/08/17 Yes Penicillins Allergy Mild RESH 08/06/13 No Physical Exam Physical Exam Constitutional: in no acute distress, non-toxic appearance. [] HENT: Normocephalic, atraumatic, bilateral external ears normal, oropharynx moist, no oral exudates, nose normal. No carotid bruit. No temporal lobe tenderness. Eyes: PERRLA, EOMI, conjunctiva normal, no discharge. See visual acuity and pin hole eval. Neck: Normal range of motion, no tenderness, supple, no stridor. [] Cardiovascular:Heart rate regular rhythm, no murmur , PMI to Lt. Lungs & Thorax: Bilateral breath sounds clear to auscultation [] Abdomen: Bowel sounds normal, soft, no tenderness, no masses, no pulsatile masses. [] Skin: Warm, dry, no erythema, no rash. Poor turgor. Back: No tenderness, no CVA tenderness. [] Extremities: No tenderness, no cyanosis, no clubbing, ROM intact, no edema. Arthritic changes Neurologic: Alert and oriented X 3, normal motor function, normal sensory function, no focal deficits noted. [][employer] Assembler equal. DTR + patella and brachial. No drift. Fundus grossly benign. No field deficits. Psychologic: Affect normal, judgement normal, mood normal. [] Current Patient Data Vital Signs Vital Signs Date Time Temp Pulse Resp B/P (MAP) Pulse Ox O2 Delivery O2 Flow Rate FiO2 04/15/17 20:05 90 20 155/72 (99) 96 Room Air 04/15/17 17:35 97.3 EKG EKG [] Radiology/Procedures Radiology/Procedures CT no acte changes. Ethomid sinusitis[] Course & Med Decision Making Course & Med Decision Making Pertinent Labs and Imaging studies reviewed. (See chart for details). Continue home treatments for sinusitis. Follow-up primary care. Return if any concerns. [] Final Impression Final Impression 1. Blurred Vison 2. Sinusitis[] Problems: Dragon Disclaimer Dragon Disclaimer This electronic medical record was generated, in whole or in part, using a voice recognition dictation system. OLIVER FRANCISCO MD Apr 15, 2017 18:13
--- NOTE | 2017-04-15 19:09 | RAD ---
Examination: CT head and maxillofacial bones without contrast HISTORY: History of dizziness, blurred vision, sinusitis COMPARISON: None available TECHNIQUE: Axial CT images of the head was performed without contrast. Axial CT images of the maxillary facial bones were performed without contrast. Coronal and sagittal reformats are performed. Exposure: One or more of the following individualized dose reduction techniques were utilized for this examination: 1. Automated exposure control 2. Adjustment of the mA and/or kV according to patient size 3. Use of iterative reconstruction technique FINDINGS: There is no evidence of midline shift. Mild bilateral periventricular white matter hypodensities likely chronic small vessel ischemic disease. Visualized lateral ventricles, third ventricle, fourth ventricle appropriate for age. The basal cisterns are uneffaced. The bilateral orbital globes appear intact. The retro-orbital fat is maintained. There is moderate opacification of the anterior bilateral ethmoidal air cells with moderate mucosal thickening identified in the bilateral maxillary sinuses. The visualized sphenoid sinuses, left mastoid air cells are clear. There is mild opacification the right mastoid air cells. Moderate degenerative changes left temporomandibular joint. IMPRESSION: 1. No acute intracranial findings. 2. Moderate mucosal thickening identified in the bilateral ethmoidal air cells and the bilateral maxillary sinus likely sinus disease. 3. Mild opacification of the right mastoid air cells, nonspecific. Electronically signed by: Ross Cline MD (04/15/2017 7:06 PM) [id number]
[2017-04-15] MEDS ORDERED: FLUT9.9S NS (19:42)
[2017-04-15 20:05] VITALS: BP 155/72
== END 2017-04-15 20:07 | disposition home or self-care (01) ==
LOC: ER 17:04
DX: H53.8 Other visual disturbances (principal); J32.9 Chronic sinusitis, unspecified; E78.00 Pure hypercholesterolemia, unspecified; E03.9 Hypothyroidism, unspecified; I10 Essential (primary) hypertension; Z88.1 Allergy status to other antibiotic agents; Z88.6 Allergy status to analgesic agent; Z88.0 Allergy status to penicillin
CPT/HCPCS: 70450; 70486; 99284-25

== ENCOUNTER → 2017-05-21 | Outpatient (CLI) | payer MEDICARE, OTHER ==
[~2017-05-21] MED LIST changes: +FLUT9.9S NS
--- NOTE | 2017-05-21 17:36 | RAD ---
CT chest without contrast 05/21/2017 Clinical indication: Pneumonia. Comparison: Chest radiograph 04/07/2017, CT chest 07/31/2012. Technique: Multiple CT images of the chest were obtained without contrast according to standard protocol. PQRS Compliance Statement: One or more of the following individualized dose reduction techniques were utilized for this examination: 1. Automated exposure control 2. Adjustment of the mA and/or kV according to patient size 3. Use of iterative reconstruction technique Findings: Chest: Heart size is normal without significant pericardial effusion. The thoracic aorta is normal in caliber with mild calcified atheromatous disease. Three-vessel coronary artery calcifications are noted. No axillary, mediastinal or obvious hilar lymphadenopathy. There is an atrophic left lobe thyroid gland. The central airways are patent with mild retained secretions. Mild centrilobular emphysema and scattered areas of pleural-parenchymal scarring in both lungs. There are mild bilateral tree-in-bud opacities most prominent in the lower lobes. There is a tiny noncalcified nodule with central cavitation in the left lower lobe measuring 0.4 cm series 2/image 38. Chronic superior T7 and T8 compression deformities with mild bony retropulsion posterior to T8 resulting in effacement of the anterior thecal sac with no significant spinal canal or neural foraminal narrowing. There is resultant focal kyphotic angulation due to the compression deformities. Limited images of the upper abdomen: Grossly unremarkable. Impression: 1. Bilateral tree-in-bud opacities may represent inflammatory infectious bronchiolitis. 2. Subcentimeter left lower lobe cavitary nodule, may represent additional infectious/inflammatory nodules. Follow-up CT chest in 3 months is recommended to assess for resolution. 3. Mild emphysema. 4. 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
== END | disposition home or self-care (01) ==
LOC: CT 12:42
PROVIDERS: ATTEND Specialist
DX: J18.9 Pneumonia, unspecified organism (principal); J43.9 Emphysema, unspecified; R91.1 Solitary pulmonary nodule; Z87.891 Personal history of nicotine dependence
CPT/HCPCS: 71250

== ENCOUNTER → 2017-06-02 | Outpatient (CLI) | payer MEDICARE, OTHER ==
--- NOTE | 2017-06-02 16:49 | RAD ---
Chest, 2 views, 06/02/2017: History: COPD Comparison is made to a study from 04/07/2017. The heart size is normal. The lungs are hyperexpanded due to emphysema. There is a calcified granuloma in the right upper lobe. There are streaky pulmonary opacities in the lower chest, including the right middle lobe and lingula, which appear to have improved. The residual densities may represent scarring. No new pulmonary abnormality is seen. There is no evidence of pleural fluid. Chronic midthoracic vertebral compression fractures appear unchanged. IMPRESSION: 1. Emphysema with parenchymal scarring. 2. Improving bibasilar streaky pulmonary opacities. 3. No new abnormality is detected.
== END | disposition home or self-care (01) ==
LOC: DXRAD 15:58
PROVIDERS: ATTEND Specialist
DX: J44.1 Chronic obstructive pulmonary disease with (acute) exacerbation (principal); Z87.891 Personal history of nicotine dependence
CPT/HCPCS: 71046

== ENCOUNTER 2019-12-07 16:12 | Emergency (ER) | payer MEDICARE, OTHER ==
[~2019-12-07] VITALS: Ht 149.9 cm; Wt 44.3 kg
[~2019-12-07 16:12] MED LIST changes: -MECL12.52 PO; +MECL12.573 PO; -MONT10TA6 PO; +MONT10TA80 PO; +MULT-445 PO; -MULT1TAB52 PO; -OLOP2.5D EACHEYE; +OLOP2.5D12 EACHEYE
[2019-12-07 16:18] VITALS: BP 143/70
--- NOTE | 2019-12-07 16:27 | PHYS DOC ---
Past History Past Medical History: High Cholesterol, Hypertension, Hypothyroid, Sinusitis, Other Past Surgical History: Hip Replacement Alcohol Use: None Drug Use: None Adult General Chief Complaint Chief Complaint: MECHANICAL FALL HPI HPI Patient is a pleasant 89-year-old female with past medical history of Alzheimer's dementia and recent left hip surgery who presents status post fall. She is a resident at [facility] facility and reportedly suffered an unwitnessed fall when reaching overhead to grab household item. Patient reportedly hit head based on hematoma noted to upper left portion of left eye, no other known injuries. When found by staff, EMS was called and patient was transported to our ED for further evaluation. Of note patient is on anticoagulation status post left hip surgery. She is also chronically on 3 L of oxygen via nasal cannula without any increase or apparent respiratory distress. Patient has no known COVID-19 contacts or symptoms Review of Systems Review of Systems Fourteen body systems of review of systems have been reviewed. See HPI for pertinent positives and negative responses, other [place] all other systems are negative, non-pertinent or non-contributory Allergies Allergies Allergies Coded Allergies Type Severity Reaction Last Updated Verified aspirin Allergy Severe SWELLING 08/06/13 Yes amoxicillin Allergy Intermediate 04/08/17 No clarithromycin Allergy Intermediate 04/08/17 No erythromycin base Allergy Intermediate 04/08/17 Yes ibuprofen Allergy Intermediate 04/08/17 Yes Penicillins Allergy Mild RESH 08/06/13 No Physical Exam Physical Exam Constitutional: Pt is oriented to person, place, and time. Pt appears well- developed and well-nourished. HENT: Head: Normocephalic and atraumatic. Mouth/Throat: Oropharynx is clear and moist. No lacerations or abrasions to face or scalp. Mild edema and hematoma noted to superior lateral aspect of left eyebrow OP clear, no blood, no malocclusion, dentition intact Nares clear, no nasal septal hematoma TMs clear, no hemotympanum Midface stable Eyes: Conjunctivae and EOM are normal. Pupils are equal, round, and reactive to light. Neck: C-spine midline nontender, no step-offs Cardiovascular: Normal rate, regular rhythm and normal heart sounds. Pulmonary/Chest: Effort normal and breath sounds normal. No respiratory distress. He has no wheezes. CTA bilaterally Abdominal: Soft. Bowel sounds are normal. Pt exhibits no distension. There is no tenderness. Musculoskeletal: No bony tenderness to extremities, no deformities, full ROM extremities Chest wall stable Pelvis stable. Mildly tender on left side status post recent hip surgery. Bruising reported to left side but consistent with recent hip surgery and patient who is anticoagulated No vertebral TTP and spine without stepoffs Neurological: Pt is alert and oriented to person, place, and time. Moving all extremities willfully, able to wiggle all fingers and toes Alert and oriented x 3 Sensation grossly intact Skin: Skin is warm and dry. No abrasions, no lacerations Psychiatric: Behavior is appropriate for situation Nursing note and vitals reviewed. Current Patient Data Vital Signs Vital Signs Date Time Temp Pulse Resp B/P (MAP) Pulse Ox O2 Delivery O2 Flow Rate FiO2 12/07/19 16:18 97.9 97 14 143/70 (94) 98 Room Air 2.0 EKG EKG [] Radiology/Procedures Radiology/Procedures PROCEDURE: CHEST AP ONLY AP chest. HISTORY: Fall AP view was taken of the chest. Lungs are free of infiltrates. There are skin folds. Heart is normal in size. There is no pleural effusion. Medial left clavicle is indistinct similar to an old study. IMPRESSION: 1. No acute chest disease. Electronically signed by: Jadiel Germain MD (12/07/2019 4:57 PM) [id number] PROCEDURE: PELVIS Pelvis one view. HISTORY: Recent hip surgery, fall AP view was taken of the pelvis. Pelvis is intact. Bladder appears distended. There is no right hip fracture. There is an intramedullary shay in the left femur with hip nails in good position. Lesser trochanter is an isolated displaced fragment. A new hip fracture is not identified. IMPRESSION: 1. Distended bladder. 2. No pelvic fracture noted. 3. No new hip fracture noted. 4. Left intramedullary shay and hip nails remaining good position. Electronically signed by: Jadiel Germain MD (12/07/2019 4:59 PM) [id number] PROCEDURE: CT HEAD AND CERVICAL SPINE WO Exam: CT head and cervical spine without contrast INDICATION: Fall with trauma to left temporal region on blood thinners TECHNIQUE: Sequential axial images through the head and cervical spine were obtained without the administration of IV contrast. Comparisons: 04/15/2017 FINDINGS: Head: No focal parenchymal lesion or hemorrhage is identified. There is no midline shift or sulcal effacement. No acute vascular territory infarction is identified. Webb-white distinction is preserved. The ventricular system is within normal limits without compression hydrocephalus. The basal cisterns are well maintained. The visualized portions of the paranasal sinuses and mastoid air cells are well-pneumatized. No acute fractures. Cervical spine: There is straightening of the cervical spine which may positional. Vertebral body heights are well-maintained. Fracture to the cervical spine is not identified. Multilevel degenerative change in the cervical spine with degenerative disease greatest at C5-C6 and C6-C7. Mild bilateral facet arthropathy is also noted throughout cervical spine. Visualized paraspinal soft tissues are unremarkable. IMPRESSION: 1. No acute intracranial abnormality. 2. Negative CT C-spine for acute traumatic injury. Exposure: One or more of the following in the visualized dose reduction techniques were utilized for this examination: 1. Automated exposure control 2. Adjustment of the MA and/or KV according to patient size Use of iterative of reconstructive technique Electronically signed by: Doris Lloyd MD (12/07/2019 5:02 PM) [id number] Course & Med Decision Making Course & Med Decision Making Patient seen by myself on immediate ER arrival, non-toxic appearing Vital signs stable, comprehensive history and physical obtained with limited history obtainable due to patient's underlying dementia, per baseline per EMS Imaging studies ordered and reviewed, grossly non-concerning for acute pathology Patient observed in ED with no changes in mentation and no new neurological findings or deficits. Ultimately, patient stable and fit for discharge back to snf with close PCP follow-up Dragon Disclaimer Dragon Disclaimer This electronic medical record was generated, in whole or in part, using a voice recognition dictation system. Departure Departure: Impression: Primary Impression: Fall Disposition: 01 HOME/RESIDENCE PRIOR TO ADM Condition: STABLE Referrals: DA HUMPHRIES MD (PCP) Patient Instructions: Fall Prevention and Home Safety, Fall Prevention in Hospitals Additional Instructions: Please follow-up with your snf physician status post fall Your CT scan images of your head and neck were unremarkable, x-rays of your c hest and pelvis were also unremarkable You are at high risk for fall, please read the attached materials and ensure your snf environment is equipped to prevent future preventable falls Justification of Admission: Justification of Admission: Justification of Admission Dx: N/A ANAYELI GEORGE DO Dec 07, 2019 16:27
--- NOTE | 2019-12-07 17:00 | RAD ---
AP chest. HISTORY: Fall AP view was taken of the chest. Lungs are free of infiltrates. There are skin folds. Heart is normal in size. There is no pleural effusion. Medial left clavicle is indistinct similar to an old study. IMPRESSION: 1. No acute chest disease. Electronically signed by: Jadiel Germain MD (12/07/2019 4:57 PM) [id number]
--- NOTE | 2019-12-07 17:03 | RAD ---
Pelvis one view. HISTORY: Recent hip surgery, fall AP view was taken of the pelvis. Pelvis is intact. Bladder appears distended. There is no right hip fracture. There is an intramedullary shay in the left femur with hip nails in good position. Lesser trochanter is an isolated displaced fragment. A new hip fracture is not identified. IMPRESSION: 1. Distended bladder. 2. No pelvic fracture noted. 3. No new hip fracture noted. 4. Left intramedullary shay and hip nails remaining good position. Electronically signed by: Jadiel Germain MD (12/07/2019 4:59 PM) [id number]
--- NOTE | 2019-12-07 17:05 | RAD ---
Exam: CT head and cervical spine without contrast INDICATION: Fall with trauma to left temporal region on blood thinners TECHNIQUE: Sequential axial images through the head and cervical spine were obtained without the administration of IV contrast. Comparisons: 04/15/2017 FINDINGS: Head: No focal parenchymal lesion or hemorrhage is identified. There is no midline shift or sulcal effacement. No acute vascular territory infarction is identified. Webb-white distinction is preserved. The ventricular system is within normal limits without compression hydrocephalus. The basal cisterns are well maintained. The visualized portions of the paranasal sinuses and mastoid air cells are well-pneumatized. No acute fractures. Cervical spine: There is straightening of the cervical spine which may positional. Vertebral body heights are well-maintained. Fracture to the cervical spine is not identified. Multilevel degenerative change in the cervical spine with degenerative disease greatest at C5-C6 and C6-C7. Mild bilateral facet arthropathy is also noted throughout cervical spine. Visualized paraspinal soft tissues are unremarkable. IMPRESSION: 1. No acute intracranial abnormality. 2. Negative CT C-spine for acute traumatic injury. Exposure: One or more of the following in the visualized dose reduction techniques were utilized for this examination: 1. Automated exposure control 2. Adjustment of the MA and/or KV according to patient size Use of iterative of reconstructive technique Electronically signed by: Doris Lloyd MD (12/07/2019 5:02 PM) [id number]
== END 2019-12-07 18:36 | disposition home or self-care (01) ==
LOC: ER 16:12
DX: S00.12XA Contusion of left eyelid and periocular area, initial encounter (principal); Z79.01 Long term (current) use of anticoagulants; E78.00 Pure hypercholesterolemia, unspecified; I10 Essential (primary) hypertension; E03.9 Hypothyroidism, unspecified; Z88.1 Allergy status to other antibiotic agents; Z88.0 Allergy status to penicillin; Z88.6 Allergy status to analgesic agent; W18.09XA Striking against other object with subsequent fall, initial encounter; Y93.89 Activity, other specified; Y92.89 Other specified places as the place of occurrence of the external cause; Y99.8 Other external cause status
CPT/HCPCS: 70450; 71045; 72125; 72170; 99285

== ENCOUNTER 2020-02-04 10:07 | Inpatient (IN) | payer MEDICARE, OTHER ==
[~2020-02-04] VITALS: Ht 149.9 cm; Wt 36.4 kg
--- NOTE | 2020-02-04 10:41 | EKG ---
[facility] ED [facility] [address] [place] [id number] Test Date: 2020-02-04 Test Time: 10:34:08 Pat Name: AUTUMN CUMMINGS Department: Room: Gender: F Director Of State: : 1930 Requested By: ARASELI LEON Order Number: [id number] Reading MD: Measurements Intervals [place] Rate: 86 P: 54 MO: 142 QRS: -38 QRSD: 112 T: 34 QT: 376 QTc: 453 Interpretive Statements SINUS RHYTHM COMPLEX(ES) WITH ABERRANT INTRAVENTRICULAR CONDUCTION LEFT ATRIAL ABNORMALITY ABNORMAL LEFT AXIS DEVIATION LEFT ANTERIOR FASCICULAR BLOCK LVH WITH REPOLARIZATION ABNORMALITY ABNORMAL ECG RI6.02 No previous ECG available for comparison
--- NOTE | 2020-02-04 10:51 | RAD ---
Examination: CHEST AP ONLY History: soa Comparison: 12/07/2019 AP view of the chest. Findings: AP portable upright frontal view of the chest was obtained. Limited pulmonary inflation. Calcified granuloma involves the right upper lung. No pneumothorax. Limited pulmonary inflation is present. Borderline pulmonary vasculature. Diffuse interstitial thickening of the lung begum noted. Left basilar interstitial thickening at the costophrenic angle is in particular seen. No dense consolidations. IMPRESSION: Borderline pulmonary vasculature. Interstitial thickening of the lung begum may represent interstitial edema. No focal dense consolidation. Electronically signed by: Costa Harding MD (02/04/2020 10:48 AM) [id number]
[2020-02-04 11:00] LABS: BASO % 0 % (0-3); EOS % 0 % (0-3); HEMATOCRIT 40.8 % (36.0-47.0); HEMOGLOBIN 12.8 g/dL (12.0-15.5); LYMPH # 0.4 x10^3/uL (1.0-4.8); LYMPH % 11 % (24-48); MEAN CORPUSCULAR HEMOGLOBIN 27 pg (25-35); MEAN CORPUSCULAR HGB CONC 32 g/dL (31-37); MEAN CORPUSCULAR VOLUME 87 fL (79-100); MONO # 0.6 x10^3/uL (0.0-1.1); MONO % 18 % (0-9); NEUT # 2.2 x10^3uL (1.8-7.7); NEUT % 70 % (31-73); PLATELET COUNT 208 x10^3/uL (140-400); RED BLOOD COUNT 4.68 x10^6/uL (3.50-5.40); RED CELL DISTRIBUTION WIDTH 17.8 % (11.5-14.5); WHITE BLOOD COUNT 3.2 x10^3/uL (4.0-11.0)
[2020-02-04 11:13] LABS: CALCIUM 9.2 mg/dL (8.5-10.1); CREATININE 0.6 mg/dL (0.6-1.0); GFR 94.6; POTASSIUM 4.4 mmol/L (3.5-5.1)
[2020-02-04 11:26] LABS: ALBUMIN 2.6 g/dL (3.4-5.0); ALBUMIN/GLOBULIN RATIO 0.6 (1.0-1.7); MAGNESIUM 2.2 mg/dL (1.8-2.4); TOTAL BILIRUBIN 0.2 mg/dL (0.2-1.0); TOTAL PROTEIN 6.8 g/dL (6.4-8.2)
--- NOTE | 2020-02-04 12:49 | PHYS DOC ---
Past History Past Medical History: High Cholesterol, Hypertension, Hypothyroid, Sinusitis, Other Past Surgical History: Hip Replacement Alcohol Use: None Drug Use: None General Adult EDM: Chief Complaint: SHORTNESS OF BREATH HPI: HPI: Patient is a 89-year-old female who is demented, was sent here from retirement because her oxygen saturation was low, so they tested her for COVID-19 and it was positive. History is very limited because patient is demented. Patient says she feels fine, she denies any symptom. Review of Systems: Review of Systems: Constitutional: Denies fever or chills Eyes: Denies change in visual acuity HENT: Denies nasal congestion or sore throat Respiratory: Denies cough or shortness of breath Cardiovascular: Denies chest pain or edema GI: Denies abdominal pain, nausea, vomiting, bloody stools or diarrhea : Denies dysuria Musculoskeletal: Denies back pain or joint pain Integument: Denies rash Neurologic: Denies headache, focal weakness or sensory changes Endocrine: Denies polyuria or polydipsia Lymphatic: Denies swollen glands Psychiatric: Denies depression or anxiety Heart Score: Risk Factors: Risk Factors: DM, Current or recent (<one month) smoker, HTN, HLP, family history of CAD, obesity. Risk Scores: Score 0 - 3: 2.5% MACE over next 6 weeks - Discharge Home Score 4 - 6: 20.3% MACE over next 6 weeks - Admit for Clinical Observation Score 7 - 10: 72.7% MACE over next 6 weeks - Early Invasive Strategies Allergies: Allergies: Allergies Coded Allergies Type Severity Reaction Last Updated Verified aspirin Allergy Severe SWELLING 08/06/13 Yes amoxicillin Allergy Intermediate 04/08/17 No clarithromycin Allergy Intermediate 04/08/17 No erythromycin base Allergy Intermediate 04/08/17 Yes ibuprofen Allergy Intermediate 04/08/17 Yes Penicillins Allergy Mild RESH 08/06/13 No Physical Exam: PE: Constitutional: Well developed, well nourished, no acute distress, non-toxic appearance. [] HENT: Normocephalic, atraumatic, bilateral external ears normal, oropharynx moist, no oral exudates, nose normal. [] Eyes: PERRLA, EOMI, conjunctiva normal, no discharge. [] Neck: Normal range of motion, no tenderness, supple, no stridor. [] Cardiovascular:Heart rate regular rhythm, no murmur [] Lungs & Thorax: Bilateral breath sounds clear to auscultation [] Abdomen: Bowel sounds normal, soft, no tenderness, no masses, no pulsatile masses. [] Skin: Warm, dry, no erythema, no rash. [] Back: No tenderness, no CVA tenderness. [] Extremities: No tenderness, no cyanosis, no clubbing, ROM intact, no edema. [] Neurologic:AWAKE, ALERT, MOVE ALL EXTREMITIES Psychologic: Affect normal, judgement normal, mood normal. [] Current Patient Data: Labs: Laboratory Tests Test 02/04/20 10:33 White Blood Count 3.2 x10^3/uL (4.0-11.0) L Red Blood Count 4.68 x10^6/uL (3.50-5.40) Hemoglobin 12.8 g/dL (12.0-15.5) Hematocrit 40.8 % (36.0-47.0) Mean Corpuscular Volume 87 fL (79-100) Mean Corpuscular Hemoglobin 27 pg (25-35) Mean Corpuscular Hemoglobin Concent 32 g/dL (31-37) Red Cell Distribution Width 17.8 % (11.5-14.5) H Platelet Count 208 x10^3/uL (140-400) Neutrophils (%) (Auto) 70 % (31-73) Lymphocytes (%) (Auto) 11 % (24-48) L Monocytes (%) (Auto) 18 % (0-9) H Eosinophils (%) (Auto) 0 % (0-3) Basophils (%) (Auto) 0 % (0-3) Neutrophils # (Auto) 2.2 x10^3uL (1.8-7.7) Lymphocytes # (Auto) 0.4 x10^3/uL (1.0-4.8) L Monocytes # (Auto) 0.6 x10^3/uL (0.0-1.1) Eosinophils # (Auto) 0.0 x10^3/uL (0.0-0.7) Basophils # (Auto) 0.0 x10^3/uL (0.0-0.2) Sodium Level 144 mmol/L (136-145) Potassium Level 4.4 mmol/L (3.5-5.1) Chloride Level 101 mmol/L (98-107) Carbon Dioxide Level 36 mmol/L (21-32) H Anion Gap 7 (6-14) Blood Urea Nitrogen 17 mg/dL (7-20) Creatinine 0.6 mg/dL (0.6-1.0) Estimated GFR (Cockcroft-Gault) 94.6 BUN/Creatinine Ratio 28 (6-20) H Glucose Level 96 mg/dL (70-99) Calcium Level 9.2 mg/dL (8.5-10.1) Magnesium Level 2.2 mg/dL (1.8-2.4) Total Bilirubin 0.2 mg/dL (0.2-1.0) Aspartate Amino Transferase (AST) 31 U/L (15-37) Alanine Aminotransferase (ALT) 20 U/L (14-59) Alkaline Phosphatase 83 U/L (46-116) Troponin I Quantitative < 0.017 ng/mL (0-0.055) IV-Tyd-U-Type Natriuretic Peptide 450 pg/mL (0-449) H Total Protein 6.8 g/dL (6.4-8.2) Albumin 2.6 g/dL (3.4-5.0) L Albumin/Globulin Ratio 0.6 (1.0-1.7) L Vital Signs: Vital Signs Date Time Temp Pulse Resp B/P (MAP) Pulse Ox O2 Delivery O2 Flow Rate FiO2 02/04/20 10:46 97.9 86 22 137/72 (93) 97 Nasal Cannula 4.0 EKG: EKG: EKG was done at 1024, heart rate of 86 bpm, sinus rhythm, no ST segment elevation. Radiology/Procedures: Radiology/Procedures: [][address] [address] IMAGING REPORT Signed PATIENT: AUTUMN CUMMINGS AACCOUNT: [id number] : 1930 LOCATION: ER AGE: 89 SEX: F EXAM STATUS: PRE ER ORD. PHYSICIAN: ARASELI LEON DO REASON: soa PROCEDURE: CHEST AP ONLY Examination: CHEST AP ONLY History: soa Comparison: 12/07/2019 AP view of the chest. Findings: AP portable upright frontal view of the chest was obtained. Limited pulmonary inflation. Calcified granuloma involves the right upper lung. No pneumothorax. Limited pulmonary inflation is present. Borderline pulmonary vasculature. Diffuse interstitial thickening of the lung begum noted. Left basilar interstitial thickening at the costophrenic angle is in particular seen. No dense consolidations. IMPRESSION: Borderline pulmonary vasculature. Interstitial thickening of the lung begum may represent interstitial edema. No focal dense consolidation. Electronically signed by: Costa Vance MD (02/04/2020 10:48 AM) [id number] DICTATED AND SIGNED BY: COSTA VANCE MD DATE: 02/04/20 1048 CC: DA HUMPHRIES MD; ARASELI LEON DO ~ Course & Med Decision Making: Course & Med Decision Making Pertinent Labs and Imaging studies reviewed. (See chart for details) Patient is a 89-year-old female who is DNR from the retirement, diagnosed with COVID-19 infection, hypoxic. Required hospital admission due to hypoxia Dragon Disclaimer: Dragon Disclaimer: This electronic medical record was generated, in whole or in part, using a voice recognition dictation system. Departure Departure: Impression: Primary Impression: COVID-19 virus infection Additional Impression: Hypoxia Disposition: ADMITTED INPATIENT Admitting Physician: John Carvajal Condition: STABLE Referrals: DA HUMPHRIES MD (PCP) ARASELI LEON DO Feb 04, 2020 12:49
[2020-02-04 15:45] VITALS: BP 149/74
--- NOTE | 2020-02-04 18:15 | HP ---
ADMIT DATE: 02/04/2020 ADMISSION HISTORY AND PHYSICAL ATTENDING PHYSICIAN: Dr. Barrow. CHIEF COMPLAINT: Hypoxemia. HISTORY OF PRESENT ILLNESS: The patient is an 89-year-old female from a local [place] [facility], admitted to the ED, she had some decreased saturation. She was sent to the Emergency Room after coronavirus swab was turned back positive. The chest x-ray showed COPD changes, some vascular congestion, no acute infiltrates identified. Because of her symptoms and decreased saturation, she was admitted to the hospital for further treatment and evaluation. She may be having early signs and symptoms. In any event, she was admitted. We will place her under coronavirus quarantine. I did start her on empiric Decadron along with prophylaxis for DVT with low molecular weight heparin. Her home meds will be continued. She is a DNR per advanced directive. She has profound dementia. Much of the history then is obtained from the old chart. PAST MEDICAL HISTORY: Significant for hypertension, hypothyroidism, hyperlipidemia, chronic sinusitis, degenerative arthritis. She has had previous hip replacement. ALLERGIES: SHE HAS ALLERGIES TO PENICILLIN, AMOXICILLIN, ASPIRIN, CLARITHROMYCIN, ERYTHROMYCIN BASE AND IBUPROFEN. EXACT REACTION IS UNCLEAR. MEDICATIONS: For her meds from the [place] [facility], they include the following: She was scheduled to take albuterol, cholecalciferol, doxycycline, fluticasone, guaifenesin, ipratropium bromide, Levaquin, Synthroid, lisinopril, loratadine, Lutein extract, meclizine, metoprolol, montelukast, multivitamin, Pataday eyedrops, Crestor and Benefiber. SOCIAL HISTORY: She had been a smoker in the past, currently nonsmoker, no drinking issues. FAMILY HISTORY: Unobtainable. REVIEW OF SYSTEMS: Unobtainable due to the patient's confusion. She is pleasantly confused. PHYSICAL EXAMINATION: GENERAL: When I saw her, this is a chronically ill-appearing elderly female. INITIAL VITAL SIGNS: In the ED showed a blood pressure of 137/72 mmHg, her oxygen saturation are 91% on 1 liter nasal cannula, temperature is 97.9 degrees Fahrenheit, pulse is 86 and regular. HEENT: The head is without trauma. Pupils are reactive. Sclerae are nonicteric. Oropharynx is clear. There are no lesions. NECK: Supple, no bruits. LUNGS: Shallow respirations with minimal wheezing. CARDIOVASCULAR: Showed regular heart tones. ABDOMEN: Soft, scaphoid, nontender. EXTREMITIES: Showed no cyanosis or edema. NEUROLOGIC FINDINGS: Focally intact. No deficits. Speech is fluent. Affect is fair. She is a bit confused. SKIN: Warm and dry. IMAGING STUDIES: Her chest x-ray in the ED showed borderline pulmonary vasculature, interstitial thickening of the lung begum, which may be infiltrate, no focal consolidations identified. Heart size is upper limits of normal. PERTINENT LABORATORY STUDIES: Her hemoglobin is 12.8 g/dL, white count is diminished at 3200. Electrolytes showed a sodium of 144 mEq/L, potassium 4.4, creatinine is 0.6 mg percent. Cardiac enzymes negative for myocardial necrosis and the BNP was at 450. ASSESSMENT: 1. An 89-year-old female with hypoxemia. 2. Concomitant positive COVID-19 coronavirus swab whether this is causing her symptoms remains to be seen, she may have an early coronavirus pneumonia. 3. Underlying dementia. 4. Chronic obstructive pulmonary disease on chest x-ray. 5. Hyperlipidemia. 6. Hypothyroidism. PLAN: 1. Admit to the inpatient unit. 2. I will start her on empiric Decadron, which has been recommended to lower mortality rate. The dose is 6 mg daily. 3. Prophylaxis to prevent the high incidence of deep vein thrombosis and significant coronavirus infection. 4. Continue some home meds. 5. Diet as tolerated. 6. We shall follow the protocol for coronavirus isolation. She is a DNR per advanced directives. LESLEY BARROW MD DR: AMPARO/robson JOB#: [id number] / [id number]
[2020-02-04] MEDS: DEXAMETHASONE SOD PHOS 10 MG/ML VIAL. IV SCH (19:38)
[2020-02-04] MEDS: ENOXAPARIN 30 MG/0.3 ML SYRINGE. SQ SCH (19:38)
[2020-02-04] MEDS: KETOTIFEN FUMARATE 0.025% OPHT SOLUTION BOTTLE. OU SCH (19:39)
[2020-02-04] MEDS: FLUTICASONE 50MCG/NASAL SPRAY 16GM BOTTLE. NS SCH (19:39)
[2020-02-04 20:00] VITALS: BP 129/81
[2020-02-04 23:00] VITALS: BP 142/63
[2020-02-05 02:30] VITALS: BP 143/78
[2020-02-05] MEDS: levoFLOXacin 250 MG TABLET PO SCH (06:00)
[2020-02-05] MEDS ORDERED: DOCU-109 PO (06:31)
[2020-02-05] MEDS ORDERED: FLUT1DIS3 IH (06:31)
[2020-02-05] MEDS ORDERED: BISA5TAB4 PO (06:31)
[2020-02-05] MEDS ORDERED: BUDE0.5A11 NEB (06:31)
[2020-02-05] MEDS ORDERED: IPRA3AMP29 NEB (06:31)
[2020-02-05] MEDS ORDERED: HYDR25TA PO (06:31)
[2020-02-05] MEDS ORDERED: DILT30TA26 PO (06:31)
[2020-02-05] MEDS ORDERED: LIDO700A21 TP (06:31)
[2020-02-05] MEDS ORDERED: LOPE2TAB27 PO (06:31)
[2020-02-05 07:00] VITALS: BP 114/57
[2020-02-05] MEDS: KETOTIFEN FUMARATE 0.025% OPHT SOLUTION BOTTLE. OU SCH ×2 (08:53→21:03)
[2020-02-05] MEDS: DEXAMETHASONE SOD PHOS 10 MG/ML VIAL. IV SCH (08:53)
[2020-02-05] MEDS: LACTOBACILLUS RHAMNOSUS GG 1 CAPSULE. PO SCH ×2 (08:54→21:03)
[2020-02-05] MEDS: ATORVASTATIN CALCIUM 20 MG TABLET PO SCH (08:55)
[2020-02-05] MEDS ORDERED: METOPROLOL TART IMMED RELEASE 25 MG TABLET. PO SCH (09:00)
[2020-02-05] MEDS ORDERED: LISINOPRIL 10 MG TABLET PO SCH (09:00)
[2020-02-05] MEDS ORDERED: OLOPATADINE HCL EACHEYE SCH (09:00)
[2020-02-05 11:00] VITALS: BP 138/70
[2020-02-05] MEDS: dilTIAZem HCL 30 MG TABLET PO SCH ×2 (11:56→21:04)
[2020-02-05] MEDS: LIDOCAINE (700MG/PATCH) PATCH. TP SCH (11:56)
--- NOTE | 2020-02-05 11:57 | PN ---
DATE: 02/05/2020 ATTENDING PHYSICIAN: Dr. Barrow. SUBJECTIVE: The patient is comfortable. She denies any new distress, dyspnea or pain. OBJECTIVE FINDINGS: VITAL SIGNS: Her blood pressure is 143/78, pulse is 85 and regular, temperature 97.4 degrees Fahrenheit, oxygen saturation adequate at 2 liters nasal cannula. HEENT: Head is without trauma. Pupils are reactive. Sclerae nonicteric. Oropharynx clear. NECK: Supple, no bruits identified. LUNGS: Shallow respirations. Minimal rhonchi at the bases. CARDIOVASCULAR: Showed regular heart tones. No gallops. Peripheral pulses are palpable and full. ABDOMEN: Soft, scaphoid, nontender, no organomegaly. Bowel sounds are hypoactive. EXTREMITIES: Showed no cyanosis or edema. NEUROLOGIC FINDINGS: Pleasantly confused. Yesterday, her hemoglobin was stable at 12.8 g/dL. Electrolytes within normal range. ASSESSMENT: 1. An 89-year-old female, [facility] resident with COVID-19 positive coronavirus swab. 2. Hypoxemia, etiology is unclear whether this is due to early pneumonia. 3. Underlying dementia. 4. Chronic obstructive pulmonary disease. 5. Hyperlipidemia. 6. Hypothyroidism. PLAN: 1. We shall continue her scheduled Decadron and Lovenox. 2. I have added zinc and Pepcid. 3. I shall order a CT of the chest tomorrow to better ascertain her pulmonary inflammation whether she does have pneumonia or not. 4. She remains a DNR per advanced directive. 5. Diet as tolerated. LESLEY BARROW MD DR: AMPARO/robson JOB#: [id number] / [id number]
[2020-02-05] MEDS: FAMOTIDINE 20 MG TABLET PO SCH (11:59)
[2020-02-05] MEDS ORDERED: LORazepam 1 MG TABLET PO PRN (12:00)
--- NOTE | 2020-02-05 13:33 | RAD ---
Exam performed: CT scan of the chest without contrast. Indication: Covid 19 pneumonia Date of Service: 02/05/2020.Comparison: CT chest from 05/21/2017 Technique: Contiguous helical acquisitions are obtained through the chest without IV contrast. Sagittal and coronal reformatted images are obtained and reviewed. CT chest findings: Structures at the thoracic inlet including both lobes of the thyroid gland appear grossly normal. Lack of IV contrast limits evaluation of neck and intrathoracic great vessels, however they appear grossly normal in course and caliber. There is diffuse atheromatous calcification of the aorta. Heart size is normal, no pericardial effusion is seen. No dominant mediastinal, hilar or axillary lymphadenopathy seen. The central airway is patent. Interrogation of lungs demonstrates emphysematous changes with changes consistent with pulmonary fibrosis. There are groundglass opacities in both upper and lower lobes mainly in a peripheral distribution. There is trace bilateral pleural effusion. Limited evaluation of the upper abdominal structures is unremarkable. Generalized osteopenia with multilevel compression fracture involving several thoracic vertebral bodies. Impression CT chest: 1. Emphysematous changes with scattered groundglass opacities in both upper and lower lobes and peripheral distribution likely infiltrates. 2. Generalized osteopenia with multilevel compression fractures involving several thoracic vertebral bodies, some of which are new since prior. If indicated evaluation with MRI of the thoracolumbar spine may be obtained to evaluate acuity of the fractures PQRS Compliance Statement: One or more of the following individualized dose reduction techniques were utilized for this examination: 1. Automated exposure control 2. Adjustment of the mA and/or kV according to patient size 3. Use of iterative reconstruction technique Electronically signed by: Rona Alonzo MD (02/05/2020 1:29 PM) [facility]
[2020-02-05 15:00] VITALS: BP 122/46
[2020-02-05 18:34] VITALS: BP 105/45
[2020-02-05] MEDS: ENOXAPARIN 30 MG/0.3 ML SYRINGE. SQ SCH (18:47)
[2020-02-05] MEDS: FLUTICASONE 50MCG/NASAL SPRAY 16GM BOTTLE. NS SCH (21:03)
[2020-02-05 21:25] VITALS: BP 133/83
[2020-02-06] MEDS: levoFLOXacin 250 MG TABLET PO SCH (06:02)
[2020-02-06 07:00] VITALS: BP 114/47
[2020-02-06] MEDS: KETOTIFEN FUMARATE 0.025% OPHT SOLUTION BOTTLE. OU SCH ×2 (08:01→21:46)
[2020-02-06] MEDS: MULTIVITAMIN with MINERAL TABLET. PO SCH (08:42)
[2020-02-06] MEDS: DEXAMETHASONE 4 MG TABLET PO SCH (08:42)
[2020-02-06] MEDS: FAMOTIDINE 20 MG TABLET PO SCH (08:42)
[2020-02-06] MEDS: DOCUSATE SODIUM 100 MG CAPSULE PO SCH (08:42)
[2020-02-06] MEDS: LACTOBACILLUS RHAMNOSUS GG 1 CAPSULE. PO SCH ×2 (08:42→20:57)
[2020-02-06] MEDS: dilTIAZem HCL 30 MG TABLET PO SCH ×2 (08:43→20:57)
[2020-02-06] MEDS: LORazepam 0.5 MG TABLET PO PRN ×2 (08:43→20:57)
[2020-02-06] MEDS: LIDOCAINE (700MG/PATCH) PATCH. TP SCH (08:43)
[2020-02-06] MEDS: ATORVASTATIN CALCIUM 20 MG TABLET PO SCH (08:45)
[2020-02-06] MEDS: ZINC SULFATE 220 MG CAPSULE. PO SCH (08:45)
--- NOTE | 2020-02-06 10:08 | PN ---
DATE: 02/06/2020 ATTENDING PHYSICIAN: Dr. Barrow. SUBJECTIVE: Pleasantly confused. She is comfortable. There is no obvious respiratory distress. She inquired where her upper dentures were. I informed her that it is in her mouth. OBJECTIVE FINDINGS: VITAL SIGNS: Blood pressure today is 133/83 mmHg, her temperature is 97.3 degrees Fahrenheit, pulse 88 and regular, oxygen saturation 95% on 3 liters by nasal cannula. HEENT: Head is without trauma. Pupils are reactive. Oropharynx clear. NECK: Supple. LUNGS: Shallow respirations. Minimal rhonchi at the bases. CARDIOVASCULAR: Showed distant heart tones. No gallops. ABDOMEN: Soft, no guarding, no organomegaly. Bowel sounds were hypoactive. EXTREMITIES: Without edema. She has muscle wasting. NEUROLOGIC: Pleasantly confused. She is not aware of what is going on. LABORATORY DATA: The CT chest done yesterday confirmed emphysematous changes and scattered ground glass opacities in both upper and lower lobes consistent with COVID-19 pneumonia. She has diffuse osteopenia. ASSESSMENT: 1. An 89-year-old female, alf patient with COVID-19 coronavirus pneumonia. 2. Hypoxemia requiring supplemental oxygen. 3. Underlying dementia, profound. 4. Chronic obstructive pulmonary disease. 5. Hyperlipidemia. 6. Hypothyroidism, on replacement. PLAN: 1. We will continue her oral Decadron. Her IV was pulled out. 2. Continue Lovenox. 3. I have added zinc and Pepcid. 4. Supportive care. 5. She is a DNR per advanced directives. I will contact her family to give an update. LESLEY BARROW MD DR: AMPARO/robson JOB#: [id number] / [id number] DA Dutton MD
[2020-02-06 11:00] VITALS: BP 136/70
[2020-02-06 15:00] VITALS: BP 119/80
[2020-02-06] MEDS: ENOXAPARIN 30 MG/0.3 ML SYRINGE. SQ SCH (18:12)
[2020-02-06 19:50] VITALS: BP 116/68
[2020-02-06] MEDS: FLUTICASONE 50MCG/NASAL SPRAY 16GM BOTTLE. NS SCH (21:46)
[2020-02-06 23:14] VITALS: BP 133/62
[2020-02-07] MEDS: LORazepam 0.5 MG TABLET PO PRN ×2 (02:21→21:00)
[2020-02-07] MEDS: levoFLOXacin 250 MG TABLET PO SCH (05:56)
[2020-02-07] MEDS: KETOTIFEN FUMARATE 0.025% OPHT SOLUTION BOTTLE. OU SCH ×2 (09:00→21:00)
[2020-02-07] MEDS: MULTIVITAMIN with MINERAL TABLET. PO SCH (09:00)
[2020-02-07] MEDS: DOCUSATE SODIUM 100 MG CAPSULE PO SCH (09:00)
[2020-02-07] MEDS: LIDOCAINE (700MG/PATCH) PATCH. TP SCH (09:00)
[2020-02-07] MEDS: DEXAMETHASONE 4 MG TABLET PO SCH (10:38)
[2020-02-07] MEDS: LACTOBACILLUS RHAMNOSUS GG 1 CAPSULE. PO SCH ×2 (10:38→20:59)
[2020-02-07] MEDS: dilTIAZem HCL 30 MG TABLET PO SCH ×2 (10:38→20:59)
[2020-02-07] MEDS: ZINC SULFATE 220 MG CAPSULE. PO SCH (10:38)
[2020-02-07] MEDS: ATORVASTATIN CALCIUM 20 MG TABLET PO SCH (10:39)
[2020-02-07] MEDS: FAMOTIDINE 20 MG TABLET PO SCH (10:39)
[2020-02-07 11:09] VITALS: BP 167/96
[2020-02-07 13:17] VITALS: BP 134/79
--- NOTE | 2020-02-07 18:13 | PN ---
DATE: 02/07/2020 ATTENDING PHYSICIAN: Dr. Barrow. SUBJECTIVE: She is comfortable. She remains pleasantly confused. She is still maintaining adequate saturation on 3 liters of nasal cannula. OBJECTIVE FINDINGS: VITAL SIGNS: Blood pressure today is 133/62, pulse 66 and regular. She is afebrile. Oxygen saturation 91% on 3 liters of nasal cannula. HEENT: Head is without trauma. Pupils are reactive. Sclerae nonicteric. Oropharynx clear. NECK: Supple. LUNGS: Fairly good breath sounds. She has got moderate rhonchi at the bases. CARDIOVASCULAR: Showed distant heart tones. No gallops. ABDOMEN: Scaphoid, soft, no guarding. EXTREMITIES: Without cyanosis or edema. NEUROLOGIC: Focally intact, pleasantly confused. SKIN: Warm and dry. ASSESSMENT: 1. An 89-year-old female, care home patient with bilateral infiltrates consistent with COVID-19 coronavirus pneumonia. 2. Mild hypoxemia. 3. Underlying chronic obstructive pulmonary disease, pneumonia has been verified by CT scan. 4. Pulmonary cachexia. 5. Generalized debilitation. PLAN: 1. Continue supportive care. 2. Supplemental oxygen. 3. Continue Decadron orally. 4. Zinc orally. 5. Pepcid. 6. Prophylactic Lovenox. 7. She is a DNR per advanced directives. LESLEY BARROW MD DR: AMPARO/robson JOB#: [id number] / [id number]
[2020-02-07] MEDS: ENOXAPARIN 30 MG/0.3 ML SYRINGE. SQ SCH (18:26)
[2020-02-07 19:44] VITALS: BP 133/77
[2020-02-07 19:53] VITALS: BP 133/77
[2020-02-07] MEDS: FLUTICASONE 50MCG/NASAL SPRAY 16GM BOTTLE. NS SCH (21:00)
[2020-02-07 23:06] VITALS: BP 130/65
[2020-02-08] MEDS: LORazepam 0.5 MG TABLET PO PRN ×3 (01:24→19:46)
[2020-02-08] MEDS: levoFLOXacin 250 MG TABLET PO SCH (06:06)
[2020-02-08] MEDS: ZINC SULFATE 220 MG CAPSULE. PO SCH (08:10)
[2020-02-08] MEDS: FAMOTIDINE 20 MG TABLET PO SCH (08:10)
[2020-02-08] MEDS: ATORVASTATIN CALCIUM 20 MG TABLET PO SCH (08:11)
[2020-02-08] MEDS: MULTIVITAMIN with MINERAL TABLET. PO SCH (08:12)
[2020-02-08] MEDS: DOCUSATE SODIUM 100 MG CAPSULE PO SCH (08:12)
[2020-02-08] MEDS: LIDOCAINE (700MG/PATCH) PATCH. TP SCH (08:12)
[2020-02-08] MEDS: dilTIAZem HCL 30 MG TABLET PO SCH ×2 (08:12→19:46)
[2020-02-08] MEDS: LACTOBACILLUS RHAMNOSUS GG 1 CAPSULE. PO SCH ×2 (08:12→19:45)
[2020-02-08] MEDS: DEXAMETHASONE 4 MG TABLET PO SCH (08:13)
[2020-02-08] MEDS: KETOTIFEN FUMARATE 0.025% OPHT SOLUTION BOTTLE. OU SCH ×2 (08:15→19:47)
[2020-02-08 08:49] VITALS: BP 148/83
--- NOTE | 2020-02-08 09:54 | PN ---
DATE: 02/08/2020 ATTENDING PHYSICIAN: Dr. Barrow. SUBJECTIVE: The patient remains very confused. She is asleep, however, in observation, she is a little more tachypneic at rest. OBJECTIVE FINDINGS: VITAL SIGNS: Blood pressure today is 148/83 mmHg, temperature 97.8 degrees Fahrenheit, pulse 91 and regular, oxygen saturation 96% on 3 liters, which is what her baseline has been for supplemental oxygen. HEENT: Head is without trauma. Pupils are reactive. Sclerae nonicteric. Oropharynx is clear. NECK: Supple, no bruits identified. LUNGS: Very shallow respirations. CARDIOVASCULAR: Showed regular heart tones. No obvious gallops. Peripheral pulses are palpable and weak. ABDOMEN: Soft, nontender, no guarding or rebound tenderness. Bowel sounds are hypoactive. EXTREMITIES: Showed muscle contractures. There is no cyanosis. NEUROLOGIC: Very confused and disoriented. ASSESSMENT: 1. An 89-year-old female, shelter resident with COVID-19 coronavirus pneumonia. 2. Hypoxemia on supplemental oxygen 3 liters by nasal cannula. Her oxygen demand has not increased in the last 3 days. 3. Underlying chronic obstructive pulmonary disease. 4. Cachexia. 5. Profound dementia. 6. Generalized debilitation. PLAN: 1. Continue supportive care. 2. She is a DNR per advanced directive. 3. Supplemental oxygen. 4. Continue oral Decadron. 5. Continue zinc and Pepcid empirically. 6. Prophylaxis: Lovenox. 7. She is in a holding pattern. If she stabilizes and does not require any supplemental oxygen, we will talk about discharging her back to quarantine at [facility]. LESLEY BARROW MD DR: AMPARO/robson JOB#: [id number] / [id number]
[2020-02-08 12:19] VITALS: BP 164/84
[2020-02-08 15:10] VITALS: BP 127/77
[2020-02-08] MEDS: ENOXAPARIN 30 MG/0.3 ML SYRINGE. SQ SCH (17:38)
[2020-02-08 19:00] VITALS: BP 151/67
[2020-02-08] MEDS: FLUTICASONE 50MCG/NASAL SPRAY 16GM BOTTLE. NS SCH (19:47)
[2020-02-08 22:56] VITALS: BP 151/68
[2020-02-09] MEDS: LORazepam 0.5 MG TABLET PO PRN ×4 (00:05→19:46)
[2020-02-09] MEDS: levoFLOXacin 250 MG TABLET PO SCH (05:17)
[2020-02-09 07:43] VITALS: BP 135/78
[2020-02-09] MEDS: FAMOTIDINE 20 MG TABLET PO SCH (09:13)
[2020-02-09] MEDS: DOCUSATE SODIUM 100 MG CAPSULE PO SCH (09:13)
[2020-02-09] MEDS: LACTOBACILLUS RHAMNOSUS GG 1 CAPSULE. PO SCH ×2 (09:14→19:46)
[2020-02-09] MEDS: DEXAMETHASONE 4 MG TABLET PO SCH (09:14)
[2020-02-09] MEDS: ZINC SULFATE 220 MG CAPSULE. PO SCH (09:14)
[2020-02-09] MEDS: MULTIVITAMIN with MINERAL TABLET. PO SCH (09:14)
[2020-02-09] MEDS: ATORVASTATIN CALCIUM 20 MG TABLET PO SCH (09:14)
[2020-02-09] MEDS: LIDOCAINE (700MG/PATCH) PATCH. TP SCH (09:15)
[2020-02-09] MEDS: dilTIAZem HCL 30 MG TABLET PO SCH ×2 (09:26→19:46)
[2020-02-09] MEDS: KETOTIFEN FUMARATE 0.025% OPHT SOLUTION BOTTLE. OU SCH ×2 (09:40→21:00)
[2020-02-09 11:28] VITALS: BP 132/78
[2020-02-09 15:02] VITALS: BP 149/81
[2020-02-09] MEDS: ENOXAPARIN 30 MG/0.3 ML SYRINGE. SQ SCH (17:12)
--- NOTE | 2020-02-09 17:55 | RAD ---
CHEST AP ONLY History: Worsening shortness of breath COVID positive Comparison: None. Findings: Single view of the chest is submitted. Lung apices were not entirely included. No convincing pneumothorax is identified of the visualized lung parenchyma. There is again emphysema. There is again some interstitial and reticular opacity at the lung bases greater on the left although somewhat improved aeration, no new infiltrate is identified. Heart size is stable. There is atherosclerotic calcification near aortic arch. There is again granuloma of the mid to superior right hemithorax. Impression: 1. No new lobar infiltrate is identified by radiograph, somewhat improved aeration of the lung bases. There is again emphysema. Electronically signed by: Jose Thompson MD (02/09/2020 5:51 PM) [facility]
[2020-02-09 19:42] VITALS: BP 156/78
[2020-02-09 20:00] VITALS: BP 162/78
[2020-02-09] MEDS: FLUTICASONE 50MCG/NASAL SPRAY 16GM BOTTLE. NS SCH (21:00)
[2020-02-10 00:17] VITALS: BP 151/79
[2020-02-10] MEDS: LORazepam 0.5 MG TABLET PO PRN ×2 (00:45→06:29)
--- NOTE | 2020-02-10 01:09 | PN ---
DATE: 02/09/2020 SUBJECTIVE: The patient is resting, slightly propped up in bed, in no apparent respiratory distress. She is moaning and groaning and yelling; however, on questioning her, denied any complaint. PHYSICAL EXAMINATION: GENERAL: When I examined her, she was extremely pale, cachectic. Her body mass index only 15.9 kilograms square meter and there was no jaundice or cyanosis. No lymphadenopathy, no thyromegaly. No jugular venous distention or limb edema. VITAL SIGNS: Her heart rate was 86, blood pressure 149/81, temperature was 98.4, respiratory rate was 30 and oxygen saturation was 96% on 4 liters of oxygen. HEAD, EYES, EARS, NOSE AND THROAT: Normocephalic, atraumatic. NECK: Supple. CARDIAC: Normal first and second heart sounds with no gallop, rub or murmur. CHEST: She has bilateral scattered coarse crepitation on both sides. I could not appreciate any rhonchi. ABDOMEN: Scaphoid, soft, nontender. NEUROLOGIC: She is demented without any obvious lateralizing sign. She opens her eyes and __ words. She moves upper extremities to much good extent than lower extremities. Her intake over the last 24 hours was 316, no output was recorded. LABORATORY DATA: Her most recent lab work showed a white cell count 3200, hemoglobin 12.8, hematocrit 40, MCV 87 and platelet count 208,000. Her chemistry showed a serum sodium 144, potassium 4.4, chloride 101, bicarbonate 36, anion gap of 7, BUN 17, creatinine 0.6, estimated GFR was 95 mL per minute. Her glucose was 96, calcium was 9.2, magnesium 2.2. Total bilirubin, AST, ALT, alkaline phosphatase were normal. Beta natriuretic peptide was 450. Total protein 6.8 and albumin was 2.6. ASSESSMENT: 1. An 89-year-old female an [facility]isted [facility] resident with COVID-19 coronavirus pneumonia. 2. Acute on chronic hypoxic respiratory failure. She is now on 4 liters of oxygen by nasal cannula, maintaining her oxygen saturation at 96%. 3. Underlying chronic obstructive pulmonary disease. 4. Cachexia. 5. Profound dementia. 6. Generalized debilitation. PLAN: To continue with her current medications including the dexamethasone and her levofloxacin. Continue with DVT prophylaxis. My plan is to repeat her chest x-ray. Repeat all her lab work. I will consult Physical and Occupational Therapy. We will swab again for COVID-19 and decide on discharge plan tomorrow. LILLIAN ROCA MD DR: LUISANA/robson JOB#: [id number] / [id number]
[2020-02-10 04:36] VITALS: BP 141/78
[2020-02-10] MEDS: levoFLOXacin 250 MG TABLET PO SCH (06:04)
[2020-02-10 07:09] LABS: ALBUMIN 2.2 g/dL (3.4-5.0); ALBUMIN/GLOBULIN RATIO 0.6 (1.0-1.7); C REACTIVE PROTEIN 3.7 mg/L (0-3.3); CALCIUM 8.1 mg/dL (8.5-10.1); CREATININE 0.6 mg/dL (0.6-1.0); GFR 94.6; TOTAL BILIRUBIN 0.2 mg/dL (0.2-1.0)
[2020-02-10 08:24] LABS: HEMATOCRIT 41.1 % (36.0-47.0); HEMOGLOBIN 12.9 g/dL (12.0-15.5); RED BLOOD COUNT 4.79 x10^6/uL (3.50-5.40); RED CELL DISTRIBUTION WIDTH 17.1 % (11.5-14.5); WHITE BLOOD COUNT 3.8 x10^3/uL (4.0-11.0)
[2020-02-10] MEDS: ZINC SULFATE 220 MG CAPSULE. PO SCH (08:39)
[2020-02-10] MEDS: dilTIAZem HCL 30 MG TABLET PO SCH (08:40)
[2020-02-10] MEDS: DOCUSATE SODIUM 100 MG CAPSULE PO SCH (08:40)
[2020-02-10] MEDS: FAMOTIDINE 20 MG TABLET PO SCH (08:40)
[2020-02-10] MEDS: DEXAMETHASONE 4 MG TABLET PO SCH (08:40)
[2020-02-10] MEDS: MULTIVITAMIN with MINERAL TABLET. PO SCH (08:40)
[2020-02-10] MEDS: ATORVASTATIN CALCIUM 20 MG TABLET PO SCH (08:40)
[2020-02-10] MEDS: KETOTIFEN FUMARATE 0.025% OPHT SOLUTION BOTTLE. OU SCH (08:40)
[2020-02-10] MEDS: LACTOBACILLUS RHAMNOSUS GG 1 CAPSULE. PO SCH (08:40)
[2020-02-10] MEDS: LIDOCAINE (700MG/PATCH) PATCH. TP SCH (08:40)
[2020-02-10 11:00] VITALS: BP 113/60
[2020-02-10 12:04] LABS: BGAS PH 7.41 (7.35-7.45)
[2020-02-10] MEDS ORDERED: MORPHINE SULFATE 2 MG/ML DISP.SYRIN. IV PRN (12:15)
--- NOTE | 2020-02-10 20:37 | PN ---
DATE: 02/10/2020 SUBJECTIVE: The patient is extremely tachypneic today, moaning and groaning. OBJECTIVE: GENERAL: When I examined her, she was pale, cachectic, but no jaundice, cyanosis or thyromegaly. No jugular venous distention. No limb edema. VITAL SIGNS: Her heart rate was 88, blood pressure was 113/60, temperature was 97.1, respiratory rate was 30 and oxygen saturation was 96% on 5 liters of oxygen. HEAD, EYES, EARS, NOSE AND THROAT: Normocephalic, atraumatic. NECK: Supple. HEART: Showed normal first and second heart sounds. No gallop or murmur. CHEST: Clear to auscultation. No crepitation or rhonchi. ABDOMEN: Distended, soft. NEUROLOGIC: She is profoundly demented without any obvious lateralizing sign. Her intake was 600, output was ___ recorded. LABORATORY DATA: Her lab work this morning showed a white cell count of 3800, hemoglobin 12.9, hematocrit 41, MCV 86 and platelet count 307,000. Her chemistry showed a serum sodium 141, potassium 4, chloride 102, bicarbonate 37, anion gap of 2, BUN 25, creatinine 0.6, estimated GFR was 94 mL per minute. Her glucose was 98, calcium was 8.1. Total bilirubin, AST, ALT, alkaline phosphatase were normal. Her C-reactive protein was 3.7. Total protein was 6, albumin was 2.2. Her D-dimer was 0.77 and her blood gas this morning showed a pH of 7.41, pCO2 of 59, pO2 of 62, bicarbonate 38 and oxygen saturation was 91% on FiO2 of 36%. ASSESSMENT: 1. This is an 89-year-old female patient who resides at assisted living facility of [facility], who was admitted with COVID-19 coronavirus pneumonia. 2. Acute on chronic hypoxic respiratory failure. She is now on 5 liters of oxygen by nasal cannula, maintaining her oxygen saturation at 96%. 3. Underlying chronic obstructive pulmonary disease. 4. Extreme cachexia. 5. Profound dementia. 6. Generalized debility. PLAN: The patient was basically continued with oxygen supplementation. We spoke with the family regarding her deteriorating condition and perhaps considering comfort and hospice care. We are waiting for the result of the discussion with her family. Meanwhile, we will continue with all her other medications. We did start her on morphine 2 mg IV every 4 hours and she seemed to be much more comfortable now. LILLIAN ROCA MD DR: LUISANA/robson JOB#: [id number] / [id number]
--- NOTE | 2020-02-14 11:11 | DS ---
DATE OF DISCHARGE: 02/10/2020 HOSPITAL COURSE: The patient is an 89-year-old female patient, a resident at [facility], who was admitted with acute hypoxic respiratory failure and was found to be positive for COVID-19 coronavirus swab. She is known to have chronic obstructive pulmonary disease and she was treated with Decadron as well as her other medication including IV antibiotic Lovenox and her condition has continued to deteriorate. She has been moaning and groaning and today she became very lethargic and in discussion with the family, they opted for inpatient hospice care. PHYSICAL EXAMINATION: GENERAL: When I saw her this afternoon, she was extremely pale, cachectic, but no jaundice, cyanosis or thyromegaly. No jugular venous distention or limb edema. VITAL SIGNS: Her heart rate was 88, blood pressure was 113/60, temperature was 98, respiratory rate was 30 and oxygen saturation was 96% on 5 liters of oxygen. HEAD, EYES, EARS, NOSE AND THROAT: Normocephalic, atraumatic. NECK: Supple. HEART: Showed normal first and second heart sounds. No gallop, rub or murmur. CHEST: Clear to auscultation. No crepitation or rhonchi. ABDOMEN: Distended, soft, nontender. NEUROLOGIC: She is profoundly demented, but without any obvious lateralizing sign. All cranial nerves are intact. She moves extremities without difficulty, although she is mostly bedbound. LABORATORY DATA: Her lab work showed a white cell count 3800, hemoglobin 13, hematocrit 41, MCV 86 and platelet count 307,000. Her serum sodium 141, potassium 4, chloride 102, bicarbonate 37, anion gap of 2, BUN 25, creatinine 0.6. Her D-dimer was 0.77. DISCHARGE MEDICATIONS: The patient was discharged to inpatient hospice and we discontinued all her medication. She was started on a morphine drip, Ativan, Tylenol, Dulcolax, hyoscyamine and bisacodyl suppository. FINAL DISCHARGE DIAGNOSES: 1. Acute on chronic hypoxic hypercapnic respiratory failure, chronic obstructive pulmonary disease exacerbation. 2. COVID-19 pneumonia. 3. Cachexia. 4. Profound dementia. 5. Generalized debilitation. LILILAN ROCA MD DR: LUISANA/robson JOB#: [id number] / [id number]
== END 2020-02-10 15:20 | disposition hospice, inpatient (51) | DRG 177 ==
LOC: ER 10:07 → 1 SOUTH 13:20 → ICU 14:13 → 1 SOUTH 02-10 13:32
PROVIDERS: ADMIT Hospitalist; ATTEND Hospitalist
DX: U07.1 COVID-19 (principal); J96.21 Acute and chronic respiratory failure with hypoxia; J12.89 Other viral pneumonia; R64 Cachexia; J44.1 Chronic obstructive pulmonary disease with (acute) exacerbation; J44.0 Chronic obstructive pulmonary disease with (acute) lower respiratory infection; Z68.1 Body mass index [BMI] 19.9 or less, adult; I10 Essential (primary) hypertension; Z66 Do not resuscitate; E03.9 Hypothyroidism, unspecified; Z88.0 Allergy status to penicillin; Z88.8 Allergy status to other drugs, medicaments and biological substances; F03.90 Unspecified dementia, unspecified severity, without behavioral disturbance, psychotic disturbance, mood disturbance, and anxiety; R53.81 Other malaise; J32.8 Other chronic sinusitis; E78.5 Hyperlipidemia, unspecified
CPT/HCPCS: 36415; 71045; 71250; 80053; 82803; 83735; 83880; 84484; 85025; 85027; 85379; 86140; 93005; 94760; J1100; J1650; J2270; J8540; 99285-25; U0003-CS

== ENCOUNTER 2020-02-10 15:23 | Inpatient (IN) | payer OTHER ==
[~2020-02-10] VITALS: Ht 175.3 cm; Wt 34.7 kg
[~2020-02-10 15:23] MED LIST changes: +BISA5TAB4 PO; +BUDE0.5A11 NEB; +DILT30TA26 PO; +DOCU-109 PO; +FLUT1DIS3 IH; +HYDR25TA PO; +IPRA3AMP29 NEB; +LIDO700A21 TP; +LOPE2TAB27 PO
[2020-02-10] MEDS ORDERED: ACETAMINOPHEN 650 MG SUPP.RECT. PR PRN (15:45)
[2020-02-10] MEDS ORDERED: BISACODYL 10 MG SUPP.RECT PR PRN (15:45)
[2020-02-10] MEDS ORDERED: HYOSCYAMINE 0.125 MG TAB.RAPDIS PO PRN (15:45)
[2020-02-10 16:04] VITALS: BP 115/72
--- NOTE | 2020-02-10 16:45 | NUR ---
NURSING NOTE ADMIT PT ADMIT TO ROOM 125 FROM ICU FOR [facility]. [facility] NURSE AT BEDSIDE. ORDERS OBTAINED. PT CURRENTLY RESTING. RAFA SLADE.
[2020-02-10] MEDS: MORPHINE SULFATE 30 MG/30 ML 30 ML IV PRN ×2 (17:03→21:24)
--- NOTE | 2020-02-10 17:27 | DS ---
DATE OF DISCHARGE: HOSPITAL COURSE: The patient is an 89-year-old female patient, a resident at [facility], who was admitted with acute hypoxic respiratory failure and was found to be positive for COVID-19 coronavirus swab. She is known to have chronic obstructive pulmonary disease and she was treated with Decadron as well as her other medication including IV antibiotic Lovenox and her condition has continued to deteriorate. She has been moaning and groaning and today she became very lethargic and in discussion with the family, they opted for inpatient hospice care. PHYSICAL EXAMINATION: GENERAL: When I saw her this afternoon, she was extremely pale, cachectic, but no jaundice, cyanosis or thyromegaly. No jugular venous distention or limb edema. VITAL SIGNS: Her heart rate was 88, blood pressure was 113/60, temperature was 98, respiratory rate was 30 and oxygen saturation was 96% on 5 liters of oxygen. HEAD, EYES, EARS, NOSE AND THROAT: Normocephalic, atraumatic. NECK: Supple. HEART: Showed normal first and second heart sounds. No gallop, rub or murmur. CHEST: Clear to auscultation. No crepitation or rhonchi. ABDOMEN: Distended, soft, nontender. NEUROLOGIC: She is profoundly demented, but without any obvious lateralizing sign. All cranial nerves are intact. She moves extremities without difficulty, although she is mostly bedbound. LABORATORY DATA: Her lab work showed a white cell count 3800, hemoglobin 13, hematocrit 41, MCV 86 and platelet count 307,000. Her serum sodium 141, potassium 4, chloride 102, bicarbonate 37, anion gap of 2, BUN 25, creatinine 0.6. Her D-dimer was 0.77. DISCHARGE MEDICATIONS: The patient was discharged to inpatient hospice and we discontinued all her medication. She was started on a morphine drip, Ativan, Tylenol, Dulcolax, hyoscyamine and bisacodyl suppository. FINAL DISCHARGE DIAGNOSES: 1. Acute on chronic hypoxic hypercapnic respiratory failure, chronic obstructive pulmonary disease exacerbation. 2. COVID-19 pneumonia. 3. Cachexia. 4. Profound dementia. 5. Generalized debilitation. LILLIAN ROCA MD DR: LUISANA/robson JOB#: [id number] / [id number]
--- NOTE | 2020-02-10 18:49 | NUR ---
Patient respiratory rate from 8/min to 10/min after [employer] pump changed to 5.5 mg/hr of Morphine. Patient still resting comfortably with [facility] nurse at bedside.
[2020-02-10 18:54] VITALS: BP 98/59
[2020-02-10 19:58] VITALS: BP 97/54
--- NOTE | 2020-02-11 01:29 | NUR ---
Pt resting comfortably in Rm 125. Scheduled Ativan is being given on time along w/ Q2 turns. 16F Schroeder in place to increase pt comfort. Will continue monitor.
[2020-02-11] MEDS: MORPHINE SULFATE 30 MG/30 ML 30 ML IV PRN ×2 (02:33→08:26)
--- NOTE | 2020-02-11 02:45 | NUR ---
Pt was assessed at time of 0200 Scheduled Ativan. Pt had respiratory rate of 8/min w/ no response to painful stimulation. Ativan is being held and will continue to monitor.
[2020-02-11 05:09] VITALS: BP 69/41
--- NOTE | 2020-02-11 09:32 | NUR ---
NSG NOTE; PT DEMAND PLANNER NOTED ASYSTOLE AT 0910. IDA HARO RN AND I LISTENED TO PT'S CHEST FOR 2 MINUTES EACH WITH NO HEARTBEAT OR RESPIRATIONS NOTED. NO GAG REFLEX. PUPILS FIXED. TIME OF DECLARED AT 0915 [facility] CALLED AT 0915 DAUGHTER VERONA CANO, , CALLED AND NOTIFIED OF AT 0930. SHE STATED SHE WILL CALL HER BROTHER LAURA TO NOTIFY HIM. DR ROCA NOTIFIED AT 0940
--- NOTE | 2020-02-11 11:48 | NUR ---
NSG NOTE; BODY RELEASED TO [facility] AT [id number]
--- NOTE | 2020-03-02 13:46 | DS ---
DATE OF DISCHARGE: 02/11/2020 HOSPITAL COURSE: The patient is an 89-year-old female patient, a resident at [facility], who was admitted with acute hypoxic respiratory failure and was found to be positive for COVID-19 coronavirus. She is known to have chronic obstructive pulmonary disease and she was treated with Decadron as well as antibiotics and Lovenox. Unfortunately, her condition continued to deteriorate. She has been moaning and groaning and we have held a discussion with the family and they opted for him inpatient hospice care. The patient was started on morphine drip as well as Ativan and her condition gradually deteriorated and on 02/11/2020, the patient was found to be in asystole. She had no spontaneous breathing, no audible heart sounds or palpable pulsation and no gag reflex. Her pupils were fixed and dilated. The patient was pronounced at around 9:15 on 02/11/2020. FINAL DISCHARGE DIAGNOSES: 1. Cardiopulmonary arrest. 2. Acute on chronic hypoxic hypercapnic respiratory failure. 3. Chronic obstructive pulmonary disease. 4. Aspiration pneumonia. 5. Generalized profound dementia. LILLIAN ROCA MD DR: LUISANA/robson JOB#: [id number] / [id number]
== END 2020-02-11 10:45 | DRG 177 ==
LOC: 1 SOUTH 15:23
PROVIDERS: ADMIT Internal Medicine; ATTEND Internal Medicine
DX: U07.1 COVID-19 (principal); J96.22 Acute and chronic respiratory failure with hypercapnia; J96.21 Acute and chronic respiratory failure with hypoxia; J12.89 Other viral pneumonia; J69.0 Pneumonitis due to inhalation of food and vomit; R64 Cachexia; Z68.1 Body mass index [BMI] 19.9 or less, adult; J44.1 Chronic obstructive pulmonary disease with (acute) exacerbation; J44.0 Chronic obstructive pulmonary disease with (acute) lower respiratory infection; I46.9 Cardiac arrest, cause unspecified; J44.9 Chronic obstructive pulmonary disease, unspecified; F03.90 Unspecified dementia, unspecified severity, without behavioral disturbance, psychotic disturbance, mood disturbance, and anxiety
CPT/HCPCS: J2060; J2270; Q5005